=== PATIENT | female | born 1940 | race Caucasian/White ===

== ENCOUNTER 2023-02-25 18:18 | Inpatient (IN) | payer MEDICARE ==
[2023-02-25] MEDS ORDERED: NALOXONE 0.4 MG/ML 1 ML VIAL IV PRN (18:37)
--- NOTE | 2023-02-25 18:53 | ED ---
General Adult HPI - General Chief complaint: Chest Pain Stated complaint: Chest Pain Time Seen by Provider: 02/25/23 18:21 Source: patient, EMS, RN notes reviewed, old records reviewed Mode of arrival: EMS Limitations: no limitations - History of Present Illness Initial comments: 82-year-old female who presents as a transfer from outside hospital with g eneralized weakness, UTI, elevated troponin. Patient has history of coronary artery disease status post bypass. She was transferred to this institution after it was noted that she had UTI, leukocytosis and an elevated troponin. She has not experienced any chest pain or dyspnea. She had gone to outside emergency department with weakness and she was noted to have a UTI as well as a leukocytosis of 18. Her troponin was elevated and therefore she was transferred to this institution for stroke or headache enzymes and cardiology consultation. At the time my evaluation she denies any chest pain or any history of chest pain. No dyspnea. Review of Systems ROS Statement: Those systems with pertinent positive or pertinent negative responses have been documented in the HPI. ROS Other: All systems not noted in ROS Statement are negative. Past Medical History Past Medical History: Coronary Artery Disease (CAD), Diabetes Mellitus, Hyperlipidemia, Hypertension, Myocardial Infarction ([place]), Renal Disease Additional Past Medical History / Comment(s): CKD Stage 3, bilateral pseudophakia, anemia, Past Surgical History: Coronary Bypass/CABG Additional Past Surgical History / Comment(s): eye sugery Past Psychological History: Anxiety, Depression Smoking Status: Former smoker Past Alcohol Use History: None Reported Past Drug Use History: None Reported General Exam Limitations: no limitations General appearance: alert, in no apparent distress Head exam: Present: atraumatic, normocephalic Eye exam: Present: normal appearance Neck exam: Present: normal inspection. Absent: tenderness, meningismus Respiratory exam: Present: normal lung sounds bilaterally. Absent: respiratory distress, wheezes Cardiovascular Exam: Present: regular rate, normal rhythm Extremities exam: Present: normal inspection, normal capillary refill. Absent: pedal edema, calf tenderness Neurological exam: Present: alert, oriented X3, CN II-XII intact. Absent: motor sensory deficit Psychiatric exam: Present: normal affect, normal mood Skin exam: Present: warm, dry, intact. 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 sent in by a medical professional or institution (BASIL Wade, RACING BOARD MARKER, urgent care, hospital, or [facility]...) When possible be specific @ Sent from outside hospital for cardiology evaluation Did you speak to anyone other than the patient for history (EMS, parent, family, police, friend...)? What history was obtained from this source @ -No Did you review nursing and triage notes (agree or disagree)? Why? @ -I reviewed and agree with nursing and triage notes Were old charts reviewed (outside hosp., previous admission, EMS record, old EKG, old radiological studies, urgent care reports/EKG's, [facility] records)? Report findings @ -No old charts were reviewed Differential Diagnosis (chest pain, altered mental status, abdominal pain women, abdominal pain men, vaginal bleeding, weakness, fever, dyspnea, syncope, headache, dizziness, GI bleed, back pain, seizure, CVA, palpatations, mental health, musculoskeletal)? @ -Differential Weakness: Hypoglycemia, shock, sepsis, hyponatremia, anemia, infection, [place], ETOH, adverse medicine reaction, overdose, stroke, this is not meant to be an all-inclusive list. EKG interpreted by me (3pts min.). @ -Sinus rhythm rate of 72, NM interval 202, QRS 80, QTC [address] segment elevation or depression X-rays interpreted by me (1pt min.). @ -None done CT interpreted by me (1pt min.). @ -None done U/S interpreted by me (1pt. min.). @ -None done What testing was considered but not performed or refused? (CT, X-rays, U/S, labs)? Why? @ -None What meds were considered but not given or refused? Why? @ -None Did you discuss the management of the patient with other professionals (professionals i.e. BASIL Wade, RACING BOARD MARKER, lab, RT, psych nurse, social contact worker, professional fighter, teacher, minesweeping officer, shoe caser)? Give summary @ -[Dr. Kelley Was smoking cessation discussed for >3mins.? @ -No Was critical care preformed (if so, how long)? @ -No Were there social determinants of health that impacted care today? How? (Homelessness, low income, unemployed, alcoholism, drug addiction, transportation, low edu. Level, literacy, decrease access to med. care, senior care, rehab)? @ -No Was there de-escalation of care discussed even if they declined (Discuss DNR or withdrawal of care, Hospice)? DNR status @ -No What co-morbidities impacted this encounter? (DM, HTN, Smoking, COPD, CAD, Cancer, CVA, ARF, Chemo, Hep., AIDS, mental health diagnosis, sleep apnea, morbid obesity)? @ -[Coronary artery disease Was patient admitted / discharged? Hospital course, mention meds given and route, prescriptions, significant lab abnormalities, going to OR and other pertinent info. @ 82-year-old female transferred from outside hospital with UTI, weakness, elevated troponin. Troponin was 0.43. No active chest pain, no recent chest, EKG is sinus rhythm without definitive signs of ischemia. Patient will be continued on ceftriaxone, first dose was given at outside hospital. Repeat laboratory testing: CBC and CMP will be obtained. Patient admitted to internal medicine with cardiology on consult. Undiagnosed new problem with uncertain prognosis? @ -No Drug Therapy requiring intensive monitoring for toxicity (Heparin, Nitro, Insulin, Cardizem)? @ -No Were any procedures done? @ -No Diagnosis/symptom? @ -UTI, weakness, elevated troponin Acute, or Chronic, or Acute on Chronic? @ Acute Uncomplicated (without systemic symptoms) or Complicated (systemic symptoms)? @ -default Side effects of treatment? @ -No Exacerbation, Progression, or Severe Exacerbation? @ -No Poses a threat to life or bodily function? How? (Chest pain, [place], [place], pneumonia, PE, COPD, DKA, ARF, appy, cholecystitis, CVA, Diverticulitis, Homicidal, Suicidal, threat to staff... and all critical care pts) @ -Yes, ACS, sepsis Disposition Clinical Impression: Elevated troponin, UTI (urinary tract infection), Weakness Disposition: ADMITTED IP TO THIS [facility] Condition: Stable Is patient prescribed a controlled substance at d/c from ED?: No Referrals: Nonstaff,Physician [Primary Care Provider] - 1-2 days Time of Disposition: 18:56
[2023-02-25 18:55] LABS: Basophils % (A) 0 %; Eosinophils # (A) 0.1 k/uL (0-0.7); Eosinophils % (A) 0 %; HCT 32.3 % (34.0-46.0); HGB 10.6 gm/dL (11.4-16.0); Lymphocytes # (A) 1.3 k/uL (1.0-4.8); Lymphocytes % (A) 8 %; MCH 29.4 pg (25.0-35.0); MCHC 32.7 g/dL (31.0-37.0); MCV 89.7 fL (80.0-100.0); Mean Platelet Volume 7.7; Monocytes # (A) 0.6 k/uL (0-1.0); Monocytes % (A) 4 %; Neutrophils # (A) 14.3 k/uL (1.3-7.7); Neutrophils % (A) 86 %; Platelet Count 372 k/uL (150-450); RBC 3.61 m/uL (3.80-5.40); RDW 14.5 % (11.5-15.5); WBC 16.7 k/uL (3.8-10.6)
[2023-02-25 19:13] LABS: INR 1.1 (<1.2); Partial Thromboplastin Time 30.2 sec (22.0-30.0); Prothrombin Time 12.1 sec (10.0-12.5)
[2023-02-25 19:15] LABS: ALT 13 U/L (4-34); AST 22 U/L (14-36); African American GFR (CKD) 45 (>60 ml/min/1.73 sqM); Albumin 3.1 g/dL (3.5-5.0); Alkaline Phosphatase 99 U/L (38-126); Anion Gap 14 mmol/L; Blood Urea Nitrogen 32 mg/dL (7-17); Calcium 8.6 mg/dL (8.4-10.2); Carbon Dioxide 13 mmol/L (22-30); Chloride 113 mmol/L (98-107); Glucose 88 mg/dL (74-99); Non-African American GFR(CKD) 39 (>60 ml/min/1.73 sqM); Potassium 4.2 mmol/L (3.5-5.1); Sodium 140 mmol/L (137-145); Total Bilirubin 0.5 mg/dL (0.2-1.3); Total Protein 6.3 g/dL (6.3-8.2)
[2023-02-25] MEDS: SODIUM CHLORIDE 0.9% 1,000 ML IV SCH (19:31)
[2023-02-25] MEDS: ACETAMINOPHEN TAB 325 MG TAB PO PRN (22:00)
[2023-02-25 22:34] LABS: Appearance,Urine Cloudy (Clear); Bacteria,Urine Few /hpf; Bilirubin,Urine Negative (Negative); Blood,Urine Negative (Negative); Color,Urine Yellow; Glucose,Urine (UA) Negative (Negative); Hyaline Casts,Urine 18 /lpf (0-2); Ketones,Urine Negative (Negative); Leukocyte Esterase,Urine Large (Negative); Mucus,Urine Rare /hpf; Nitrite,Urine Positive (Negative); PH, Urine 5.5 (5.0-8.0); Protein,Urine 1+ (Negative); RBC,Urine 4 /hpf (0-5); Squamous Epithelial Cell,Urine 9 /hpf (0-4); Urobilinogen,Urine <2.0 mg/dL (<2.0); WBC,Urine 109 /hpf (0-5)
[2023-02-26] MEDS: SODIUM CHLORIDE 0.9% 1,000 ML IV SCH (07:54)
[2023-02-26] MEDS: CLOPIDOGREL 75 MG TAB PO SCH (08:34)
[2023-02-26] MEDS: ATORVASTATIN 80 MG TAB PO SCH (08:34)
[2023-02-26] MEDS: ASPIRIN 81 MG PO SCH (08:34)
[2023-02-26] MEDS: FENOFIBRATE 160 MG TAB PO SCH (08:34)
[2023-02-26] MEDS: ISOSORBIDE MONONITRATE ER 30 MG TAB.ER.24H PO SCH (08:35)
[2023-02-26] MEDS: METOPROLOL SUCCINATE (ER) 100 MG TAB.ER.24H PO SCH (08:35)
[2023-02-26] MEDS: FERROUS SULFATE 325 MG TAB PO SCH (08:35)
[2023-02-26] MEDS: LOSARTAN 50 MG TAB PO SCH (08:35)
[2023-02-26] MEDS ORDERED: DEXTROSE 50% SYRINGE 50 ML IVP PRN ×2 (09:17)
[2023-02-26] MEDS: FLUoxetine HCL 10 MG CAP PO SCH (12:37)
[2023-02-26 12:44] LABS: Glucose,Whole Blood 89 mg/dL (70-110)
[2023-02-26] MEDS: INSULIN ASPART (NovoLOG) 100 UNIT/ML VIAL SQ SCH ×3 (12:44→22:21)
--- NOTE | 2023-02-26 12:59 | P.CRDCN ---
History of Present Illness Consult date: 02/26/23 Reason for Consult (text): Elevated troponin History of present illness: History of present illness: This is an 82-year-old female with past medical history of coronary artery disease status post CABG three-vessel 5 years ago and [facility], details are not available, diabetes, hypertension, hyperlipidemia, chronic kidney disease stage III, remote history of tobacco use and dependence. We have been asked to evaluate the patient for elevated troponins. Patient states that she was not feeling good Sunday night into Sunday morning awoke with chills on 2 separate occasions with shakes and rigors. She then developed hot and sweats. Her daughter told her come into the hospital. She now is feeling only tired. She denies having any chest pain or shortness of breath. Patient initially presented to another facility and diagnosed with a urinary tract infection but was found to have an elevated troponin was transferred to [facility] for further evaluation. Troponin was 0.43, creatinine 1.5, EKG sinus rhythm with PVCs. Patient denies having any chest pain, shortness of breath. Patient has been started on ceftriaxone and IV fluids. Patient states she had a stress test done in October of this year at [facility] EKG sinus rhythm with no acute ST changes, occasional PVC WBC 16.7, WBC 10.6, platelet count 372. INR 1.1. Sodium 140, potassium 4.2, BUN 32 creatinine 1.29. Troponin 0.333, 0.205, 0.166. Urinalysis cloudy, positive nitrate, leukoesterase large Home cardiac medications: Aspirin 81 mg daily, atorvastatin 80 mg daily, Plavix 75 mg daily, ferrous sulfate 325 mg daily, Imdur 30 mg daily, losartan 100 mg daily, Toprol-XL 100 mg daily, Lopid 600 mg twice daily. Review Of Systems: At the time of my evaluation: Constitutional: No fever, + chills. + weakness, fatigue or lethargy. EENT: No headache. No dizziness. Lungs: No shortness of breath, cough, no sputum production. No wheezing. Cardiovascular: No chest pain, no lower extremity edema. No palpitations. No paroxysmal nocturnal dyspnea. No orthopnea. No lightheadedness or dizziness. No syncopal episodes. Abdominal: No abdominal pain. No nausea, vomiting. No diarrhea. No constipation. No bloody or tarry stools. Genitourinary: No dysuria.. No urinary retention. Musculoskeletal: No myalgias. No muscle weakness, no frequent falls. No back pain. No neck pain. Integumentary: No wounds. No rash. No unusual bruising. Neurologic: No aphasia. No facial droop. No change in mentation. No head injury. No headache. Physical examination: Gen: This is an 82 year old female on ER stretcher, appears to be in no acute distress. VS: reviewed HEENT: Head is atraumatic, normocephalic. Pupils equal, round. Sclerae is anicteric. NECK: Supple. No JVD. LUNGS: Clear to auscultation. No wheezes or rhonchi. No intercostal retractio ns. HEART: Regular rate and rhythm. ABDOMEN: Soft No tenderness. EXTREMITIES: No pedal edema. No calf tenderness. NEUROLOGICAL: Patient is awake, alert and oriented x3. Assessment: Urinary tract infection Elevated troponin type II [facility] secondary to supply demand issue History of coronary artery disease with previous CABG Diabetes mellitus type 2 Hypertension Hyperlipidemia Chronic kidney disease stage III Remote history of tobacco use and dependence Plan: Resume patient's home cardiac medications Obtain 2-D echocardiogram and Doppler study to assess cardiac structure and function Obtain previous surgery port on CABG done 5 years ago Obtain stress test report from October of the share done at [facility]. If stress test was negative in October and echocardiogram is normal, patient is cleared for discharge from cardiology and a follow-up with her special crimes investigator and Reagan Further recommendations to follow based upon clinical course Thank you kindly for this consultation. Nurse practitioner note has been reviewed, I agree with documented findings and plan of care. Patient was seen and examined. Past Medical History Past Medical History: Coronary Artery Disease (CAD), Diabetes Mellitus, Hyperlipidemia, Hypertension, Myocardial Infarction ([place]), Renal Disease Additional Past Medical History / Comment(s): CKD Stage 3, bilateral pseudophakia, anemia, Past Surgical History: Coronary Bypass/CABG Additional Past Surgical History / Comment(s): eye sugery Past Psychological History: Anxiety, Depression Smoking Status: Former smoker Past Alcohol Use History: None Reported Past Drug Use History: None Reported Medications and Allergies Home Medications Medication Instructions Recorded Confirmed Type Ascorbic Acid [Vitamin C] 1,000 mg PO DAILY 02/25/23 02/25/23 History Aspirin EC [Ecotrin Low Dose] 81 mg PO DAILY 02/25/23 02/25/23 History Atorvastatin [Lipitor] 80 mg PO DAILY 02/25/23 02/25/23 History Clopidogrel [Plavix] 75 mg PO DAILY 02/25/23 02/25/23 History Cyanocobalamin (Vitamin B-12) 1,000 mcg PO DAILY 02/25/23 02/25/23 History [Vitamin B-12] FLUoxetine HCL [PROzac] 10 mg PO DAILY 02/25/23 02/25/23 History Ferrous Sulfate [Feosol] 325 mg PO DAILY 02/25/23 02/25/23 History Isosorbide Mononitrate ER [Imdur] 30 mg PO DAILY 02/25/23 02/25/23 History Losartan Potassium 100 mg PO DAILY 02/25/23 02/25/23 History Metoprolol Succinate (ER) [Toprol 100 mg PO DAILY 02/25/23 02/25/23 History Xl] Multivit-Min/FA/Lycopen/Lutein 1 tab PO DAILY 02/25/23 02/25/23 History [Centrum Silver Tablet] Naproxen Sodium [Aleve] 220 mg PO BID 02/25/23 02/25/23 History gemfibroziL [Lopid] 600 mg PO BID 02/25/23 02/25/23 History metFORMIN HCL [Glucophage] 500 mg PO DAILY 02/25/23 02/25/23 History Allergies Allergy/AdvReac Type Severity Reaction Status Date / Time No Known Allergies Allergy Verified 02/25/23 20:44 Physical Exam Vitals: Vital Signs Temp Pulse Pulse Resp BP BP Pulse Ox 02/26/23 04:00 97.5 F L 56 L 14 144/63 95 02/26/23 00:00 97.8 F 58 L 14 128/57 96 02/25/23 19:29 72 16 122/63 98 02/25/23 18:35 75 02/25/23 18:20 98.1 F 77 18 128/67 95 Intake and Output 02/25/23 02/26/23 02/26/23 22:59 06:59 14:59 Intake Total 600 Output Total 600 Balance -600 600 Intake: Intake, IV Titration 600 Amount Sodium Chloride 0.9% 1, 600 000 ml @ 75 mls/hr IV . [id number] [facility] Rx#:[id number] Output: Urine 600 Other: Voiding Method Toilet Toilet Weight 68.039 kg Results 02/25/23 18:42 02/25/23 18:42 Cardiac Enzymes 02/25/23 02/25/23 02/25/23 Range/Units 18:42 18:42 21:53 AST 22 (14-36) U/L Troponin I 0.333 H* 0.205 H* (0.000-0.034) ng/mL 02/26/23 Range/Units 00:58 AST (14-36) U/L Troponin I 0.166 H* (0.000-0.034) ng/mL Coagulation 02/25/23 Range/Units 18:42 PT 12.1 (10.0-12.5) sec APTT 30.2 H (22.0-30.0) sec CBC 02/25/23 Range/Units 18:42 WBC 16.7 H (3.8-10.6) k/uL RBC 3.61 L (3.80-5.40) m/uL Hgb 10.6 L (11.4-16.0) gm/dL Hct 32.3 L (34.0-46.0) % Plt Count 372 (150-450) k/uL Comprehensive Metabolic Panel 02/25/23 Range/Units 18:42 Sodium 140 (137-145) mmol/L Potassium 4.2 (3.5-5.1) mmol/L Chloride 113 H (98-107) mmol/L Carbon Dioxide 13 L (22-30) mmol/L BUN 32 H (7-17) mg/dL Creatinine 1.29 H (0.52-1.04) mg/dL Glucose 88 (74-99) mg/dL Calcium 8.6 (8.4-10.2) mg/dL AST 22 (14-36) U/L ALT 13 (4-34) U/L Alkaline Phosphatase 99 (38-126) U/L Total Protein 6.3 (6.3-8.2) g/dL Albumin 3.1 L (3.5-5.0) g/dL Current Medications Generic Name Dose Route Start Last Admin Trade Name Freq PRN Reason Stop Dose Admin Acetaminophen 650 mg 02/25/23 18:37 02/25/23 22:00 Acetaminophen Tab 325 Mg Tab PO 650 mg Q6HR PRN Administration Mild Pain or Fever > 100.5 Sodium Chloride 1,000 mls @ 75 mls/hr 02/25/23 18:45 02/25/23 19:31 Saline 0.9% IV 75 mls/hr .[id number] BERTHA Administration Ceftriaxone Sodium 1 gm/ 50 mls @ 100 mls/hr 02/26/23 09:00 Sodium Chloride IVPB Q24HR [facility] Protocol Naloxone HCl 0.2 mg 02/25/23 18:37 Naloxone 0.4 Mg/Ml 1 Ml Vial IV Q2M PRN Opioid Reversal Intake and Output 02/25/23 02/26/23 02/26/23 22:59 06:59 14:59 Intake Total 600 Output Total 600 Balance -600 600 Intake: Intake, IV Titration 600 Amount Sodium Chloride 0.9% 1, 600 000 ml @ 75 mls/hr IV . [id number] [facility] Rx#:[id number] Output: Urine 600 Other: Voiding Method Toilet Toilet Weight 68.039 kg 02/25/23 18:42 02/25/23 18:42
--- NOTE | 2023-02-26 13:22 | CA ---
Transthoracic Echo Report Name: Breann Child Age: 82 Gender: F : 1940 Exam Date: 02/26/2023 10:49 Exam Location: [facility] Ht (in): 58 Wt (lb): 150 Ordering Physician: Ericka Nix Attending/Referring Phys: [id number], Dinah Rope Twisting Machine Operator Braden Wright Procedure CPT: Indications: LVF Cardiac Hx: Technical Quality: Fair Contrast 1: Total Dose (mL): Contrast 2: Total Dose (mL): MEASUREMENTS (Male / Female) Normal Values 2D ECHO LV Diastolic Diameter PLAX 4.9 cm 4.2 - 5.9 / 3.9 - 5.3 cm LV Systolic Diameter PLAX 3.0 cm IVS Diastolic Thickness 1.0 cm 0.6 - 1.0 / 0.6 - 0.9 cm LVPW Diastolic Thickness 1.1 cm 0.6 - 1.0 / 0.6 - 0.9 cm LV Relative Wall Thickness 0.4 RV Internal Dim ED PLAX 3.6 cm LVOT Diameter 1.9 cm Aortic Root Diameter 3.2 cm LA Systolic Diameter LX 2.4 cm 3.0 - 4.0 / 2.7 - 3.8 cm LV Diastolic Volume MOD BP 39.0 cm??? 67 - 155 / 56 - 104 cm??? LV Systolic Volume MOD BP 19.5 cm??? - 58 / 19 - 49 cm??? LV Ejection Fraction MOD BP 50.1 % >= 55 % LV Cardiac Index MOD BP 644.7 cm???/min???m??? LV Diastolic Volume MOD 4C 54.1 cm??? LV Systolic Volume MOD 4C 21.8 cm??? LV Ejection Fraction MOD 4C 59.8 % LV Cardiac Index MOD 4C 1066.4 cm???/min???m??? LV Diastolic Length 4C 7.1 cm LV Systolic Length 4C 5.7 cm LV Diastolic Volume MOD 2C 26.2 cm??? LV Systolic Volume MOD 2C 16.2 cm??? LV Ejection Fraction MOD 2C 38.0 % LV Cardiac Index MOD 2C 328.1 cm???/min???m??? LV Diastolic Length 2C 6.5 cm LV Systolic Length 2C 6.3 cm LA Volume 45.4 cm??? 18 - 58 / 22 - 52 cm??? LA Volume Index 26.7 cm???/m??? 16 - 28 cm???/m??? DOPPLER AV Peak Velocity 211.2 cm/s AV Peak Gradient 17.8 mmHg AI Peak Velocity 353.6 cm/s AI Peak Gradient 50.0 mmHg AI Pressure Half Time 620.1 ms LVOT Peak Velocity 99.1 cm/s LVOT Peak Gradient 3.9 mmHg LVOT Velocity Time Integral 24.6 cm LVOT Stroke Volume 66.2 cm??? LVOT Stroke Volume Index 41.1 ml/m??? LVOT Cardiac Index 2183.3 cm???/min???m??? AV Area Cont Eq pk 1.3 cm??? MV Peak Velocity 99.3 cm/s MV Peak Gradient 3.9 mmHg MV Mean Velocity 52.2 cm/s MV Mean Gradient 1.3 mmHg MV Velocity Time Integral 43.9 cm MR Peak Velocity 236.2 cm/s MR Peak Gradient 22.3 mmHg Mitral E Point Velocity 84.9 cm/s Mitral A Point Velocity 92.9 cm/s Mitral E to A Ratio 0.9 MV Deceleration Time 267.7 ms MV E' Velocity 6.3 cm/s Mitral E to MV E' Ratio 13.5 TR Peak Velocity 202.7 cm/s TR Peak Gradient 16.4 mmHg Right Ventricular Systolic Press 21.4 mmHg PV Peak Velocity 118.9 cm/s PV Peak Gradient 5.7 mmHg FINDINGS Left Ventricle Normal LV size. Moderate concentric LVH. Left ventricular ejection fraction is estimated at 50-55 %. Right Ventricle Normal right ventricular size. RVSP= 21mmHg. Right Atrium Normal right atrial size. Left Atrium Normal left atrial size. LA volume Index = 28.2ml/m2 Mitral Valve Structurally normal mitral valve. Trace MR. Aortic Valve Aortic valve not well visualized. There is mild AV calcification. Moderate AI. AV area by VTI= 1.3cm2 Tricuspid Valve Tricuspid valve not well visualized. Trace TR. Pulmonic Valve Pulmonic valve not well visualized. Mild PI. Pericardium Small pericardial effusion with epicardial fat Aorta Normal size aortic root. CONCLUSIONS Normal LV size. Normal systolic function. LVEF 55% No obvious regional wall motion abnormality Moderate concentric LVH Moderate aortic insufficiency Small pericardial effusion with epicardial fat Previewed by: Dr Dakotah Donald (Electronically Signed) Final Date: 26 February 2023 13:21
--- NOTE | 2023-02-26 13:26 | P.HPIM ---
History of Present Illness H&P Date: 02/26/23 Chief Complaint: Generalized weakness, elevated troponin * 82-year-old lady with past medical history significant for diabetes mellitus, coronary artery disease, history of CABG was sent in from an outside hospital for weakness fatigue elevated troponin and concern for urinary tract infection and sepsis * Workup initiated in our emergency department include hepatology which were WBC of 16.7 and Lovenox 10.6 hematocrit of 32 platelet count of 372 * Patient had serum chemistry done which sodium of 140 potassium 4.2 carbon dioxide of 13 BU and also to 1.09 * Serial troponins obtained 0.205, 0.166, urinalysis is obtained in ED was consistent with urinary tract infection patient had already received Rocephin * EKG obtained in ER, showed sinus rhythm no significant ST segment changes * Patient was assessed in emergency department, she complained of chills, patient states her daughter had told her to come to the hospital in general patient complained of feeling tired REVIEW OF SYSTEMS: Fatigue, chills CONSTITUTIONAL: No fever, no malaise, no fatigue. HEENT: No recent visual problems or hearing problems. Denied any sore throat. CARDIOVASCULAR: No chest pain, orthopnea, PND, no palpitations, no syncope. PULMONARY: No shortness of breath, no cough, no hemoptysis. GASTROINTESTINAL: No diarrhea, no nausea, no vomiting, no abdominal pain. NEUROLOGICAL: No headaches, no weakness, no numbness. HEMATOLOGICAL: Denies any bleeding or petechiae. GENITOURINARY: Denies any burning micturition, frequency, or urgency. MUSCULOSKELETAL/RHEUMATOLOGICAL: Denies any joint pain, swelling, or any muscle pain. ENDOCRINE: Denies any polyuria or polydipsia. PHYSICAL EXAMINATION: GENERAL: The patient is alert and oriented x3, not in any acute distress. Well developed, well nourished. HEENT: Pupils are round and equally reacting to light. EOMI. No scleral icterus. No conjunctival pallor. Normocephalic, atraumatic. No pharyngeal erythema. No thyromegaly. CARDIOVASCULAR: S1 and S2 present. No murmurs, rubs, or gallops. PULMONARY: Chest is clear to auscultation, no wheezing or crackles. ABDOMEN: Soft, nontender, nondistended, normoactive bowel sounds. No palpable organomegaly. MUSCULOSKELETAL: No joint swelling or deformity. EXTREMITIES: No cyanosis, clubbing, or pedal edema. NEUROLOGICAL: Gross neurological examination did not reveal any focal deficits. SKIN: No rashes. Past Medical History Past Medical History: Coronary Artery Disease (CAD), Diabetes Mellitus, Hyperlipidemia, Hypertension, Myocardial Infarction (MD), Renal Disease Additional Past Medical History / Comment(s): CKD Stage 3, bilateral pseudophakia, anemia, Past Surgical History: Coronary Bypass/CABG Additional Past Surgical History / Comment(s): eye sugery Past Psychological History: Anxiety, Depression Smoking Status: Former smoker Past Alcohol Use History: None Reported Past Drug Use History: None Reported Medications and Allergies Home Medications Medication Instructions Recorded Confirmed Type Ascorbic Acid [Vitamin C] 1,000 mg PO DAILY 02/25/23 02/25/23 History Aspirin EC [Ecotrin Low Dose] 81 mg PO DAILY 02/25/23 02/25/23 History Atorvastatin [Lipitor] 80 mg PO DAILY 02/25/23 02/25/23 History Clopidogrel [Plavix] 75 mg PO DAILY 02/25/23 02/25/23 History Cyanocobalamin (Vitamin B-12) 1,000 mcg PO DAILY 02/25/23 02/25/23 History [Vitamin B-12] FLUoxetine HCL [PROzac] 10 mg PO DAILY 02/25/23 02/25/23 History Ferrous Sulfate [Feosol] 325 mg PO DAILY 02/25/23 02/25/23 History Isosorbide Mononitrate ER [Imdur] 30 mg PO DAILY 02/25/23 02/25/23 History Losartan Potassium 100 mg PO DAILY 02/25/23 02/25/23 History Metoprolol Succinate (ER) [Toprol 100 mg PO DAILY 02/25/23 02/25/23 History Xl] Multivit-Min/FA/Lycopen/Lutein 1 tab PO DAILY 02/25/23 02/25/23 History [Centrum Silver Tablet] Naproxen Sodium [Aleve] 220 mg PO BID 02/25/23 02/25/23 History gemfibroziL [Lopid] 600 mg PO BID 02/25/23 02/25/23 History metFORMIN HCL [Glucophage] 500 mg PO DAILY 02/25/23 02/25/23 History Allergies Allergy/AdvReac Type Severity Reaction Status Date / Time No Known Allergies Allergy Verified 02/25/23 20:44 Physical Exam Vitals: Vital Signs Temp Pulse Pulse Resp BP BP Pulse Ox 02/26/23 08:40 67 22 150/69 97 02/26/23 04:00 97.5 F L 56 L 14 144/63 95 02/26/23 00:00 97.8 F 58 L 14 128/57 96 02/25/23 19:29 72 16 122/63 98 02/25/23 18:35 75 02/25/23 18:20 98.1 F 77 18 128/67 95 Intake and Output 02/25/23 02/26/23 02/26/23 22:59 06:59 14:59 Intake Total 600 Output Total 600 Balance -600 600 Intake: Intake, IV Titration 600 Amount Sodium Chloride 0.9% 1, 600 000 ml @ 75 mls/hr IV . [id number] [facility] Rx#:[id number] Output: Urine 600 Other: Voiding Method Toilet Toilet Weight 68.039 kg Results CBC & Chem 7: 02/25/23 18:42 02/25/23 18:42 Labs: Abnormal Lab Results - Last 24 Hours (Table) 02/25/23 02/25/23 02/25/23 Range/Units 18:38 18:42 18:42 WBC 16.7 H (3.8-10.6) k/uL RBC 3.61 L (3.80-5.40) m/uL Hgb 10.6 L (11.4-16.0) gm/dL Hct 32.3 L (34.0-46.0) % Neutrophils # 14.3 H (1.3-7.7) k/uL APTT 30.2 H (22.0-30.0) sec Chloride (98-107) mmol/L Carbon Dioxide (22-30) mmol/L BUN (7-17) mg/dL Creatinine (0.52-1.04) mg/dL Troponin I (0.000-0.034) ng/mL Albumin (3.5-5.0) g/dL Urine Appearance Cloudy H (Clear) Urine Protein 1+ H (Negative) Urine Nitrite Positive H (Negative) Ur Leukocyte Esterase Large H (Negative) Urine WBC 109 H (0-5) /hpf Urine WBC Clumps Few H (None) /hpf Ur Squamous Epith Cells 9 H (0-4) /hpf Urine Bacteria Few H (None) /hpf Hyaline Casts 18 H (0-2) /lpf Urine Mucus Rare H (None) /hpf 02/25/23 02/25/23 02/25/23 Range/Units 18:42 18:42 21:53 WBC (3.8-10.6) k/uL RBC (3.80-5.40) m/uL Hgb (11.4-16.0) gm/dL Hct (34.0-46.0) % Neutrophils # (1.3-7.7) k/uL APTT (22.0-30.0) sec Chloride 113 H (98-107) mmol/L Carbon Dioxide 13 L (22-30) mmol/L BUN 32 H (7-17) mg/dL Creatinine 1.29 H (0.52-1.04) mg/dL Troponin I 0.333 H* 0.205 H* (0.000-0.034) ng/mL Albumin 3.1 L (3.5-5.0) g/dL Urine Appearance (Clear) Urine Protein (Negative) Urine Nitrite (Negative) Ur Leukocyte Esterase (Negative) Urine WBC (0-5) /hpf Urine WBC Clumps (None) /hpf Ur Squamous Epith Cells (0-4) /hpf Urine Bacteria (None) /hpf Hyaline Casts (0-2) /lpf Urine Mucus (None) /hpf 02/26/23 Range/Units 00:58 WBC (3.8-10.6) k/uL RBC (3.80-5.40) m/uL Hgb (11.4-16.0) gm/dL Hct (34.0-46.0) % Neutrophils # (1.3-7.7) k/uL APTT (22.0-30.0) sec Chloride (98-107) mmol/L Carbon Dioxide (22-30) mmol/L BUN (7-17) mg/dL Creatinine (0.52-1.04) mg/dL Troponin I 0.166 H* (0.000-0.034) ng/mL Albumin (3.5-5.0) g/dL Urine Appearance (Clear) Urine Protein (Negative) Urine Nitrite (Negative) Ur Leukocyte Esterase (Negative) Urine WBC (0-5) /hpf Urine WBC Clumps (None) /hpf Ur Squamous Epith Cells (0-4) /hpf Urine Bacteria (None) /hpf Hyaline Casts (0-2) /lpf Urine Mucus (None) /hpf Assessment and Plan Assessment: Assessment and plan * Urinary tract infection * Sepsis secondary to UTI * Coronary artery disease with history of CABG with elevated troponin * Diabetes mellitus type 2 * Hypertension * In regards to urinary tract infection him a urine cultures ordered, continue patient on IV Rocephin, blood cultures ordered continue with fluid resuscitation * In regards to sepsis, continue patient on IV antibiotic follow up on urine culture and blood culture * In regards to coronary artery disease, cardiology consulted, echocardiogram ordered, continue patient on aspirin, Lipitor, Plavix, cardiology following will need medical records from outside hospital * In regards to diabetes mellitus Accu-Cheks before meals at bedtime continue patient on correctional insulin monitor for hypoglycemia * CODE STATUS is full code
[2023-02-26] MEDS: ACETAMINOPHEN TAB 325 MG TAB PO PRN ×2 (15:55→19:49)
[2023-02-26 16:40] LABS: Glucose,Whole Blood 101 mg/dL (70-110)
[2023-02-26 20:19] LABS: Glucose,Whole Blood 108 mg/dL (70-110)
[2023-02-26] MEDS ORDERED: HYDROcodone/APAP 5-325MG 1 EACH TAB PO PRN (23:51)
[2023-02-26] MEDS: MELATONIN 5 MG TABLET PO SCH (23:56)
[2023-02-27] MEDS: SODIUM CHLORIDE 0.9% 1,000 ML IV SCH ×3 (00:03→21:24)
[2023-02-27 01:17] LABS: Glucose,Whole Blood 105 mg/dL (70-110)
[2023-02-27] MEDS ORDERED: methylPREDNISolone SOD SUCCI 125 MG/2 ML VIAL IV STA (01:59)
[2023-02-27] MEDS ORDERED: FAMOTIDINE 20 MG/2 ML VIAL IV ONE (01:59)
[2023-02-27] MEDS ORDERED: diphenhydrAMINE 50 MG/ML 1 ML VIAL IVP ONE (01:59)
[2023-02-27] MEDS ORDERED: SODIUM CHLORIDE 0.9% 500 ML 500 ML IV ONE (02:00)
[2023-02-27] MEDS: hydrALAZINE HCL 20 MG/ML 1 ML VIAL IVP PRN (02:11)
[2023-02-27] MEDS ORDERED: ACETAMINOPHEN IV (For NPO) 1,000 MG in EMPTY BAG 1 BAG IVPB PRN (02:16)
[2023-02-27] MEDS: ONDANSETRON 4 MG/2 ML VIAL IVP PRN (02:28)
[2023-02-27 02:29] LABS: ALT 11 U/L (4-34); AST 22 U/L (14-36); African American GFR (CKD) >90 (>60 ml/min/1.73 sqM); Albumin 1.8 g/dL (3.5-5.0); Alkaline Phosphatase 59 U/L (38-126); Anion Gap 7 mmol/L; Blood Urea Nitrogen 22 mg/dL (7-17); Carbon Dioxide 10 mmol/L (22-30); Chloride 124 mmol/L (98-107); Glucose 70 mg/dL (74-99); Non-African American GFR(CKD) 83 (>60 ml/min/1.73 sqM); Sodium 141 mmol/L (137-145); Total Bilirubin 0.2 mg/dL (0.2-1.3)
[2023-02-27 02:31] LABS: Calcium 5.3 mg/dL (8.4-10.2)
[2023-02-27 02:37] LABS: Glucose,Whole Blood 108 mg/dL (70-110)
[2023-02-27] MEDS ORDERED: Potassium Replacement Protocol 1 EACH MISC MISCELLANE PRN (03:28)
[2023-02-27 03:35] LABS: Basophils % (A) 0 %; Eosinophils # (A) 0.1 k/uL (0-0.7); Eosinophils % (A) 1 %; HCT 27.6 % (34.0-46.0); Hypochromasia Slight; Lymphocytes # (A) 0.4 k/uL (1.0-4.8); Lymphocytes % (A) 3 %; MCH 29.4 pg (25.0-35.0); MCHC 32.5 g/dL (31.0-37.0); Mean Platelet Volume 8.1; Monocytes # (A) 0.5 k/uL (0-1.0); Monocytes % (A) 4 %; Neutrophils # (A) 12.5 k/uL (1.3-7.7); Neutrophils % (A) 92 %; RBC 3.05 m/uL (3.80-5.40); RDW 14.6 % (11.5-15.5); WBC 13.6 k/uL (3.8-10.6)
[2023-02-27 04:05] LABS: ALT 13 U/L (4-34); AST 24 U/L (14-36); African American GFR (CKD) 62 (>60 ml/min/1.73 sqM); Albumin 2.6 g/dL (3.5-5.0); Alkaline Phosphatase 93 U/L (38-126); Anion Gap 10 mmol/L; Blood Urea Nitrogen 29 mg/dL (7-17); Carbon Dioxide 14 mmol/L (22-30); Chloride 114 mmol/L (98-107); Glucose 94 mg/dL (74-99); MCV 90.4 fL (80.0-100.0); Magnesium 1.6 mg/dL (1.6-2.3); Non-African American GFR(CKD) 54 (>60 ml/min/1.73 sqM); Potassium 3.8 mmol/L (3.5-5.1); Sodium 138 mmol/L (137-145); Total Bilirubin 0.4 mg/dL (0.2-1.3); Total Protein 5.4 g/dL (6.3-8.2)
[2023-02-27 04:06] LABS: Platelet Count 287 k/uL (150-450)
[2023-02-27] MEDS ORDERED: Magnesium Replacement Protocol 1 EACH MISC MISCELLANE PRN (04:21)
[2023-02-27 05:38] LABS: HCT 28.8 % (34.0-46.0); HGB 9.5 gm/dL (11.4-16.0); Hypochromasia Slight; MCH 29.6 pg (25.0-35.0); MCV 89.9 fL (80.0-100.0); Mean Platelet Volume 7.9; Platelet Count 321 k/uL (150-450); RBC 3.21 m/uL (3.80-5.40); RDW 14.5 % (11.5-15.5)
[2023-02-27 05:46] LABS: African American GFR (CKD) 60 (>60 ml/min/1.73 sqM); Anion Gap 11 mmol/L; Blood Urea Nitrogen 26 mg/dL (7-17); Calcium 8.1 mg/dL (8.4-10.2); Carbon Dioxide 14 mmol/L (22-30); Chloride 114 mmol/L (98-107); Glucose 97 mg/dL (74-99); Non-African American GFR(CKD) 52 (>60 ml/min/1.73 sqM); Potassium 3.9 mmol/L (3.5-5.1); Sodium 139 mmol/L (137-145)
[2023-02-27 06:11] LABS: Glucose,Whole Blood 115 mg/dL (70-110)
[2023-02-27] MEDS: INSULIN ASPART (NovoLOG) 100 UNIT/ML VIAL SQ SCH ×4 (06:37→20:31)
--- NOTE | 2023-02-27 07:21 | CT ---
EXAM: CT Angiography Chest Without and With Intravenous Contrast CLINICAL HISTORY: ITS.REASON CT Reason: HGB 3.4, ABD DISTENTION TECHNIQUE: Axial computed tomographic angiography images of the chest without and with intravenous contrast. CTDI is 8.8 mGy and DLP is 599 mGy-cm. This CT exam was performed using one or more of the following dose reduction techniques: automated exposure control, adjustment of the mA and/or kV according to patient size, and/or use of iterative reconstruction technique. MIP reconstructed images were created and reviewed. COMPARISON: No relevant prior studies available. FINDINGS: Artifacts: Respiratory motion artifact. Pulmonary arteries: No acute findings. No pulmonary embolism. Aorta: Calcified plaque thoracic aorta. No thoracic aortic aneurysm. Lungs: Mild dependent atelectasis. No consolidation. Pleural space: Unremarkable. No significant effusion. No pneumothorax. Heart: Postsurgical changes from CABG. Coronary artery calcification. Mediastinum: Mediastinal lipomatosis. Bones/joints: Findings of diffuse idiopathic skeletal hyperostosis in the thoracic spine. No acute fracture. No dislocation. Soft tissues: Unremarkable. Lymph nodes: Unremarkable. No enlarged lymph nodes. IMPRESSION: No thoracic aortic aneurysm or dissection. No acute disease. EXAM: CT Angiography Abdomen and Pelvis Without and With Intravenous Contrast CLINICAL HISTORY: ITS.REASON CT Reason: HGB 3.4, ABD DISTENTION TECHNIQUE: Axial computed tomographic angiography images of the abdomen and pelvis without and with intravenous contrast. CTDI is 21.6 mGy and DLP is 615.9 mGy-cm. This CT exam was performed using one or more of the following dose reduction techniques: automated exposure control, adjustment of the mA and/or kV according to patient size, and/or use of iterative reconstruction technique. MIP reconstructed images were created and reviewed. COMPARISON: No relevant prior studies available. FINDINGS: VASCULATURE: Aorta: Moderate calcified plaque abdominal aorta. No abdominal aortic aneurysm. No dissection. Celiac trunk and mesenteric arteries: No acute findings. No occlusion or significant stenosis. Renal arteries: There is some mild calcified plaque in the renal arteries. No significant stenosis. Iliac arteries: No acute findings. No occlusion or significant stenosis. Lung bases: Unremarkable. No mass. No consolidation. ABDOMEN: Liver: Unremarkable. No mass. Gallbladder and bile ducts: Unremarkable. No calcified stones. No ductal dilation. Pancreas: Unremarkable. No ductal dilation. No mass. Spleen: Unremarkable. No splenomegaly. Adrenals: Unremarkable. No mass. Kidneys and ureters: Mild nonspecific perinephric stranding. Cyst lower pole left kidney. No obstructing stones. Stomach and bowel: Colonic diverticulosis. No obstruction. No mucosal thickening. PELVIS: Appendix: No findings to suggest acute appendicitis. Bladder: Unremarkable. No stones. No mass. Reproductive: Unremarkable as visualized. ABDOMEN and PELVIS: Intraperitoneal space: Unremarkable. No significant fluid collection. No free air. Bones/joints: Degenerative changes in the sacroiliac joints. No acute fracture. No dislocation. Soft tissues: Upper abdominal hernia containing fat. Lymph nodes: Unremarkable. No enlarged lymph nodes. IMPRESSION: 1. No abdominal aortic aneurysm or dissection. No acute disease. 2. Colonic diverticulosis.
[2023-02-27] MEDS: ISOSORBIDE MONONITRATE ER 30 MG TAB.ER.24H PO SCH (08:28)
[2023-02-27] MEDS: LOSARTAN 50 MG TAB PO SCH (08:28)
[2023-02-27] MEDS: CLOPIDOGREL 75 MG TAB PO SCH (08:28)
[2023-02-27] MEDS: METOPROLOL SUCCINATE (ER) 100 MG TAB.ER.24H PO SCH (08:28)
[2023-02-27] MEDS: ENOXAPARIN 40 MG/0.4 ML SYRINGE SQ SCH (08:28)
[2023-02-27] MEDS: ASPIRIN 81 MG PO SCH (08:28)
[2023-02-27] MEDS: FERROUS SULFATE 325 MG TAB PO SCH (08:28)
[2023-02-27] MEDS: FLUoxetine HCL 10 MG CAP PO SCH (08:28)
[2023-02-27] MEDS: FENOFIBRATE 160 MG TAB PO SCH (08:28)
[2023-02-27] MEDS: ATORVASTATIN 80 MG TAB PO SCH (08:28)
[2023-02-27 11:36] LABS: Glucose,Whole Blood 154 mg/dL (70-110)
--- NOTE | 2023-02-27 11:39 | P.PN ---
Subjective Progress Note Date: 02/27/23 * 82-year-old lady with past medical history significant for diabetes mellitus, coronary artery disease, history of CABG was sent in from an outside hospital for weakness fatigue elevated troponin and concern for urinary tract infection and sepsis * Workup initiated in our emergency department include hepatology which were WBC of 16.7 and Lovenox 10.6 hematocrit of 32 platelet count of 372 * Patient had serum chemistry done which sodium of 140 potassium 4.2 carbon dioxide of 13 BU and also to 1.09 * Serial troponins obtained 0.205, 0.166, urinalysis is obtained in ED was consistent with urinary tract infection patient had already received Rocephin * EKG obtained in ER, showed sinus rhythm no significant ST segment changes * Patient was assessed in emergency department, she complained of chills, sybil t states her daughter had told her to come to the hospital in general patient complained of feeling tired * 02/27/23: Patient seen and evaluated bedside, overnight patient had episode of chills, rapid response was called blood work obtained showed hemoglobin of 3.4 which was elevated. Repeat blood work obtained stat showed hemoglobin of 9. Blood work obtained showed normal sodium and renal function HbA1c 6.4 lactate levels within normal limits. Serum troponins trending down appreciate input from cardiology PHYSICAL EXAMINATION: GENERAL: The patient is alert and oriented x3, not in any acute distress. Well developed, well nourished. HEENT: Pupils are round and equally reacting to light. EOMI. No scleral icterus. No conjunctival pallor. Normocephalic, atraumatic. No pharyngeal erythema. No thyromegaly. CARDIOVASCULAR: S1 and S2 present. No murmurs, rubs, or gallops. PULMONARY: Chest is clear to auscultation, no wheezing or crackles. ABDOMEN: Soft, nontender, nondistended, normoactive bowel sounds. No palpable organomegaly. MUSCULOSKELETAL: No joint swelling or deformity. EXTREMITIES: No cyanosis, clubbing, or pedal edema. NEUROLOGICAL: Gross neurological examination did not reveal any focal deficits. SKIN: No rashes. Objective - Vital Signs Vital signs: Vital Signs Temp 98.3 F 02/27/23 08:25 Pulse 56 L 02/27/23 08:25 Resp 18 02/27/23 08:25 BP 129/80 02/27/23 08:25 Pulse Ox 99 02/27/23 08:25 FiO2 Intake & Output 02/26/23 02/27/23 02/27/23 18:59 06:59 18:59 Intake Total 236 Balance 236 Weight 68.039 kg Intake: Oral 236 Other: Voiding Method Toilet Toilet Toilet # Voids 2 - Labs CBC & Chem 7: 02/27/23 05:01 02/27/23 05:01 Labs: Abnormal Lab Results - Last 24 Hours (Table) 02/27/23 02/27/23 02/27/23 Range/Units 01:49 01:49 01:49 WBC 2.5 L (3.8-10.6) k/uL RBC 1.16 L (3.80-5.40) m/uL Hgb 3.4 L* D (11.4-16.0) gm/dL Hct 11.2 L* (34.0-46.0) % MCHC 29.9 L (31.0-37.0) g/dL Plt Count 127 L D (150-450) k/uL Neutrophils # (1.3-7.7) k/uL Lymphocytes # (1.0-4.8) k/uL Potassium 3.0 L (3.5-5.1) mmol/L Chloride 124 H (98-107) mmol/L Carbon Dioxide 10 L (22-30) mmol/L BUN 22 H (7-17) mg/dL Glucose 70 L (74-99) mg/dL POC Glucose (mg/dL) (70-110) mg/dL Hemoglobin A1c (<=6.0) % Plasma Lactic Acid Anthony 3.4 H* (0.7-2.0) mmol/L Calcium 5.3 L* (8.4-10.2) mg/dL Total Protein 4.0 L (6.3-8.2) g/dL Albumin 1.8 L (3.5-5.0) g/dL Crossmatch 02/27/23 02/27/23 02/27/23 Range/Units 03:21 03:21 03:21 WBC 13.6 H (3.8-10.6) k/uL RBC 3.05 L (3.80-5.40) m/uL Hgb 9.0 L D (11.4-16.0) gm/dL Hct 27.6 L (34.0-46.0) % MCHC (31.0-37.0) g/dL Plt Count (150-450) k/uL Neutrophils # 12.5 H (1.3-7.7) k/uL Lymphocytes # 0.4 L (1.0-4.8) k/uL Potassium (3.5-5.1) mmol/L Chloride 114 H (98-107) mmol/L Carbon Dioxide 14 L (22-30) mmol/L BUN 29 H (7-17) mg/dL Glucose (74-99) mg/dL POC Glucose (mg/dL) (70-110) mg/dL Hemoglobin A1c (<=6.0) % Plasma Lactic Acid Anthony 0.6 L (0.7-2.0) mmol/L Calcium 8.0 L (8.4-10.2) mg/dL Total Protein 5.4 L (6.3-8.2) g/dL Albumin 2.6 L (3.5-5.0) g/dL Crossmatch 02/27/23 02/27/23 02/27/23 Range/Units 03:25 05:01 05:01 WBC 14.0 H (3.8-10.6) k/uL RBC 3.21 L (3.80-5.40) m/uL Hgb 9.5 L (11.4-16.0) gm/dL Hct 28.8 L (34.0-46.0) % MCHC (31.0-37.0) g/dL Plt Count (150-450) k/uL Neutrophils # (1.3-7.7) k/uL Lymphocytes # (1.0-4.8) k/uL Potassium (3.5-5.1) mmol/L Chloride (98-107) mmol/L Carbon Dioxide (22-30) mmol/L BUN (7-17) mg/dL Glucose (74-99) mg/dL POC Glucose (mg/dL) (70-110) mg/dL Hemoglobin A1c 6.4 H (<=6.0) % Plasma Lactic Acid Anthony (0.7-2.0) mmol/L Calcium (8.4-10.2) mg/dL Total Protein (6.3-8.2) g/dL Albumin (3.5-5.0) g/dL Crossmatch See Detail 02/27/23 02/27/23 02/27/23 Range/Units 05:01 05:01 06:10 WBC (3.8-10.6) k/uL RBC (3.80-5.40) m/uL Hgb (11.4-16.0) gm/dL Hct (34.0-46.0) % MCHC (31.0-37.0) g/dL Plt Count (150-450) k/uL Neutrophils # (1.3-7.7) k/uL Lymphocytes # (1.0-4.8) k/uL Potassium (3.5-5.1) mmol/L Chloride 114 H (98-107) mmol/L Carbon Dioxide 14 L (22-30) mmol/L BUN 26 H (7-17) mg/dL Glucose (74-99) mg/dL POC Glucose (mg/dL) 115 H (70-110) mg/dL Hemoglobin A1c (<=6.0) % Plasma Lactic Acid Anthony <0.5 L (0.7-2.0) mmol/L Calcium 8.1 L (8.4-10.2) mg/dL Total Protein (6.3-8.2) g/dL Albumin (3.5-5.0) g/dL Crossmatch 02/27/23 Range/Units 11:34 WBC (3.8-10.6) k/uL RBC (3.80-5.40) m/uL Hgb (11.4-16.0) gm/dL Hct (34.0-46.0) % MCHC (31.0-37.0) g/dL Plt Count (150-450) k/uL Neutrophils # (1.3-7.7) k/uL Lymphocytes # (1.0-4.8) k/uL Potassium (3.5-5.1) mmol/L Chloride (98-107) mmol/L Carbon Dioxide (22-30) mmol/L BUN (7-17) mg/dL Glucose (74-99) mg/dL POC Glucose (mg/dL) 154 H (70-110) mg/dL Hemoglobin A1c (<=6.0) % Plasma Lactic Acid Anthony (0.7-2.0) mmol/L Calcium (8.4-10.2) mg/dL Total Protein (6.3-8.2) g/dL Albumin (3.5-5.0) g/dL Crossmatch Microbiology - Last 24 Hours (Table) 02/25/23 18:38 Urine Culture - Final Urine,Voided Assessment and Plan Assessment: Assessment and plan * Urinary tract infection * Sepsis secondary to UTI * Coronary artery disease with history of CABG with elevated troponin secondary to type II DE * Diabetes mellitus type 2 * Hypertension * In regards to urinary tract infection him a urine cultures ordered, blood cultures ordered continue patient on IV Rocephin, lactate levels normalized with fluid resuscitation * In regards to sepsis, continue patient on IV antibiotic follow up on urine culture and blood culture * In regards to coronary artery disease, cardiology consulted, echocardiogram ordered shows ejection fraction 55% and no wall motion abnormality, continue patient on aspirin, Lipitor, Plavix, cardiology following will need medical records from outside hospital * In regards to diabetes mellitus Accu-Cheks before meals at bedtime continue patient on correctional insulin monitor for hypoglycemia * CODE STATUS is full code
--- NOTE | 2023-02-27 13:06 | P.PN ---
Subjective Progress Note Date: 02/27/23 History of present illness: This is an 82-year-old female with past medical history of coronary artery dis ease status post CABG three-vessel 5 years ago and presented with VT, details are not available, diabetes, hypertension, hyperlipidemia, chronic kidney disease stage III, remote history of tobacco use and dependence. We have been asked to evaluate the patient for elevated troponins. Patient states that she was not feeling good Sunday night into Sunday morning awoke with chills on 2 separate occasions with shakes and rigors. She then developed hot and sweats. Her daughter told her come into the hospital. She now is feeling only tired. She denies having any chest pain or shortness of breath. Patient initially presented to another facility and diagnosed with a urinary tract infection but was found to have an elevated troponin was transferred to [facility] for further evaluation. Troponin was 0.43, creatinine 1.5, EKG sinus rhythm with PVCs. Patient denies having any chest pain, shortness of breath. Patient has been started on ceftriaxone and IV fluids. Patient states she had a stress test done in October of this year at [facility] EKG sinus rhythm with no acute ST changes, occasional PVC WBC 16.7, WBC 10.6, platelet count 372. INR 1.1. Sodium 140, potassium 4.2, BUN 32 creatinine 1.29. Troponin 0.333, 0.205, 0.166. Urinalysis cloudy, positive nitrate, leukoesterase large Home cardiac medications: Aspirin 81 mg daily, atorvastatin 80 mg daily, Plavix 75 mg daily, ferrous sulfate 325 mg daily, Imdur 30 mg daily, losartan 100 mg daily, Toprol-XL 100 mg daily, Lopid 600 mg twice daily. 02/27 Patient is seen today on the cardiac stepdown unit. Last night patient had chills and temperature max 102.5. Nuclear stress test done on 10/31/2022 at [facility] revealed normal perfusion, EF 73%. Echocardiogram reveals EF 55%, moderate concentric left ventricular hypertrophy, moderate aortic insufficiency, small pericardial effusion with pericardial fat. Physical examination: Gen: This is an 82 year old female in bedr, appears to be in no acute distress. VS: reviewed HEENT: Head is atraumatic, normocephalic. Pupils equal, round. Sclerae is anicteric. NECK: Supple. No JVD. LUNGS: Clear to auscultation. No wheezes or rhonchi. No intercostal retraction s. HEART: Regular rate and rhythm. ABDOMEN: Soft No tenderness. EXTREMITIES: No pedal edema. No calf tenderness. NEUROLOGICAL: Patient is awake, alert and oriented x3. 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 Please reconsult for any new concerns. Patient may follow-up in the office in one to 2 weeks. Nurse practitioner note has been reviewed, I agree with documented findings and plan of care. Patient was seen and examined. Objective - Vital Signs Vital signs: Vital Signs Temp 98.3 F 02/27/23 08:25 Pulse 56 L 02/27/23 08:25 Resp 18 02/27/23 08:25 BP 129/80 02/27/23 08:25 Pulse Ox 99 02/27/23 08:25 FiO2 Intake & Output 02/26/23 02/27/23 02/27/23 18:59 06:59 18:59 Intake Total 236 Balance 236 Weight 68.039 kg Intake: Oral 236 Other: Voiding Method Toilet Toilet Toilet # Voids 2 - Labs CBC & Chem 7: 02/27/23 05:01 02/27/23 05:01 Labs: Abnormal Lab Results - Last 24 Hours (Table) 02/27/23 02/27/23 02/27/23 Range/Units 01:49 01:49 01:49 WBC 2.5 L (3.8-10.6) k/uL RBC 1.16 L (3.80-5.40) m/uL Hgb 3.4 L* D (11.4-16.0) gm/dL Hct 11.2 L* (34.0-46.0) % MCHC 29.9 L (31.0-37.0) g/dL Plt Count 127 L D (150-450) k/uL Neutrophils # (1.3-7.7) k/uL Lymphocytes # (1.0-4.8) k/uL Potassium 3.0 L (3.5-5.1) mmol/L Chloride 124 H (98-107) mmol/L Carbon Dioxide 10 L (22-30) mmol/L BUN 22 H (7-17) mg/dL Glucose 70 L (74-99) mg/dL POC Glucose (mg/dL) (70-110) mg/dL Hemoglobin A1c (<=6.0) % Plasma Lactic Acid Anthony 3.4 H* (0.7-2.0) mmol/L Calcium 5.3 L* (8.4-10.2) mg/dL Total Protein 4.0 L (6.3-8.2) g/dL Albumin 1.8 L (3.5-5.0) g/dL Crossmatch 02/27/23 02/27/23 02/27/23 Range/Units 03:21 03:21 03:21 WBC 13.6 H (3.8-10.6) k/uL RBC 3.05 L (3.80-5.40) m/uL Hgb 9.0 L D (11.4-16.0) gm/dL Hct 27.6 L (34.0-46.0) % MCHC (31.0-37.0) g/dL Plt Count (150-450) k/uL Neutrophils # 12.5 H (1.3-7.7) k/uL Lymphocytes # 0.4 L (1.0-4.8) k/uL Potassium (3.5-5.1) mmol/L Chloride 114 H (98-107) mmol/L Carbon Dioxide 14 L (22-30) mmol/L BUN 29 H (7-17) mg/dL Glucose (74-99) mg/dL POC Glucose (mg/dL) (70-110) mg/dL Hemoglobin A1c (<=6.0) % Plasma Lactic Acid Anthony 0.6 L (0.7-2.0) mmol/L Calcium 8.0 L (8.4-10.2) mg/dL Total Protein 5.4 L (6.3-8.2) g/dL Albumin 2.6 L (3.5-5.0) g/dL Crossmatch 02/27/23 02/27/2302/27/23 Range/Units 03:25 05:01 05:01 WBC 14.0 H (3.8-10.6) k/uL RBC 3.21 L (3.80-5.40) m/uL Hgb 9.5 L (11.4-16.0) gm/dL Hct 28.8 L (34.0-46.0) % MCHC (31.0-37.0) g/dL Plt Count (150-450) k/uL Neutrophils # (1.3-7.7) k/uL Lymphocytes # (1.0-4.8) k/uL Potassium (3.5-5.1) mmol/L Chloride (98-107) mmol/L Carbon Dioxide (22-30) mmol/L BUN (7-17) mg/dL Glucose (74-99) mg/dL POC Glucose (mg/dL) (70-110) mg/dL Hemoglobin A1c 6.4 H (<=6.0) % Plasma Lactic Acid Anthony (0.7-2.0) mmol/L Calcium (8.4-10.2) mg/dL Total Protein (6.3-8.2) g/dL Albumin (3.5-5.0) g/dL Crossmatch See Detail 02/27/23 02/27/23 02/27/23 Range/Units 05:01 05:01 06:10 WBC (3.8-10.6) k/uL RBC (3.80-5.40) m/uL Hgb (11.4-16.0) gm/dL Hct (34.0-46.0) % MCHC (31.0-37.0) g/dL Plt Count (150-450) k/uL Neutrophils # (1.3-7.7) k/uL Lymphocytes # (1.0-4.8) k/uL Potassium (3.5-5.1) mmol/L Chloride 114 H (98-107) mmol/L Carbon Dioxide 14 L (22-30) mmol/L BUN 26 H (7-17) mg/dL Glucose (74-99) mg/dL POC Glucose (mg/dL) 115 H (70-110) mg/dL Hemoglobin A1c (<=6.0) % Plasma Lactic Acid Anthony <0.5 L (0.7-2.0) mmol/L Calcium 8.1 L (8.4-10.2) mg/dL Total Protein (6.3-8.2) g/dL Albumin (3.5-5.0) g/dL Crossmatch Microbiology - Last 24 Hours (Table) 02/25/23 18:38 Urine Culture - Final Urine,Voided
[2023-02-27 16:42] LABS: Glucose,Whole Blood 172 mg/dL (70-110)
[2023-02-27 20:11] LABS: Glucose,Whole Blood 134 mg/dL (70-110)
[2023-02-27] MEDS: MELATONIN 5 MG TABLET PO SCH (21:21)
[2023-02-28] MEDS: SODIUM CHLORIDE 0.9% 1,000 ML IV SCH ×2 (02:31→17:41)
[2023-02-28 06:12] LABS: Glucose,Whole Blood 132 mg/dL (70-110)
[2023-02-28] MEDS: INSULIN ASPART (NovoLOG) 100 UNIT/ML VIAL SQ SCH ×4 (06:16→20:01)
[2023-02-28] MEDS: ASPIRIN 81 MG PO SCH (09:32)
[2023-02-28] MEDS: ISOSORBIDE MONONITRATE ER 30 MG TAB.ER.24H PO SCH (09:32)
[2023-02-28] MEDS: LOSARTAN 50 MG TAB PO SCH (09:32)
[2023-02-28] MEDS: CLOPIDOGREL 75 MG TAB PO SCH (09:32)
[2023-02-28] MEDS: ENOXAPARIN 40 MG/0.4 ML SYRINGE SQ SCH (09:32)
[2023-02-28] MEDS: FLUoxetine HCL 10 MG CAP PO SCH (09:32)
[2023-02-28] MEDS: FERROUS SULFATE 325 MG TAB PO SCH (09:32)
[2023-02-28] MEDS: ATORVASTATIN 80 MG TAB PO SCH (09:32)
[2023-02-28] MEDS: FENOFIBRATE 160 MG TAB PO SCH (09:32)
[2023-02-28] MEDS: METOPROLOL SUCCINATE (ER) 100 MG TAB.ER.24H PO SCH (09:32)
[2023-02-28] MEDS ORDERED: BENZOCAINE/MENTHOL LOZENG 1 EACH LOZENGE MUCOUS MEM PRN (11:01)
--- NOTE | 2023-02-28 11:04 | P.PN ---
Subjective Progress Note Date: 02/28/23 * 82-year-old lady with past medical history significant for diabetes mellitus, coronary artery disease, history of CABG was sent in from an outside hospital for weakness fatigue elevated troponin and concern for urinary tract infection and sepsis * Workup initiated in our emergency department include hepatology which were WBC of 16.7 and Lovenox 10.6 hematocrit of 32 platelet count of 372 * Patient had serum chemistry done which sodium of 140 potassium 4.2 carbon dioxide of 13 BU and also to 1.09 * Serial troponins obtained 0.205, 0.166, urinalysis is obtained in ED was consistent with urinary tract infection patient had already received Rocephin * EKG obtained in ER, showed sinus rhythm no significant ST segment changes * Patient was assessed in emergency department, she complained of chills, sybil t states her daughter had told her to come to the hospital in general patient complained of feeling tired * 02/27/23: Patient seen and evaluated bedside, overnight patient had episode of chills, rapid response was called blood work obtained showed hemoglobin of 3.4 which was elevated. Repeat blood work obtained stat showed hemoglobin of 9. Blood work obtained showed normal sodium and renal function HbA1c 6.4 lactate levels within normal limits. Serum troponins trending down appreciate input from cardiology * 02/28/23: Patient seen and evaluated bedside, patient does complain of left HIP pain and cough. We'll follow-up on chest x-ray x-ray left hip and lozenges ordered. Continue current medical regimen PHYSICAL EXAMINATION: GENERAL: The patient is alert and oriented x3, not in any acute distress. Well developed, well nourished. Ill appearance HEENT: Pupils are round and equally reacting to light. EOMI. No scleral icterus. CARDIOVASCULAR: S1 and S2 present. No murmurs, rubs, or gallops. PULMONARY: Chest is clear to auscultation, no wheezing or crackles. ABDOMEN: Soft, nontender, nondistended, normoactive bowel sounds. No palpable organomegaly. MUSCULOSKELETAL: No joint swelling or deformity. EXTREMITIES: No cyanosis, clubbing, or pedal edema. NEUROLOGICAL: Gross neurological examination did not reveal any focal deficits. SKIN: No rashes. Objective - Vital Signs Vital signs: Vital Signs Temp 98.0 F 02/28/23 08:00 Pulse 56 L 02/28/23 08:00 Resp 16 10/25/23 08:00 BP 185/80 02/28/23 08:00 Pulse Ox 97 02/28/23 08:00 FiO2 Intake & Output 02/27/23 02/28/23 02/28/23 18:59 06:59 18:59 Intake Total 358 240 Output Total 600 Balance -242 240 Intake: Oral 358 240 Output: Urine 600 Other: Voiding Method Toilet Toilet Toilet # Voids 2 - Labs CBC & Chem 7: 02/27/23 05:01 02/27/23 05:01 Labs: Abnormal Lab Results - Last 24 Hours (Table) 02/27/23 02/27/23 02/27/23 Range/Units 11:34 16:38 20:10 POC Glucose (mg/dL) 154 H 172 H 134 H (70-110) mg/dL 02/28/23 Range/Units 06:10 POC Glucose (mg/dL) 132 H (70-110) mg/dL Microbiology - Last 24 Hours (Table) 02/26/23 10:07 Blood Culture - Preliminary Blood 02/25/23 18:38 Urine Culture - Final Urine,Voided Assessment and Plan Assessment: Assessment and plan * Urinary tract infection * Sepsis secondary to UTI * Coronary artery disease with history of CABG with elevated troponin secondary to type II UT * Diabetes mellitus type 2 * Osteoarthritis with left hip pain * Hypertension * In regards to urinary tract infection him a urine cultures ordered, blood cultures ordered continue patient on IV Rocephin day 3 , lactate levels normalized with fluid resuscitation * In regards to sepsis, continue patient on IV antibiotic follow up on urine culture and blood culture * In regards to coronary artery disease, cardiology consulted, echocardiogram ordered shows ejection fraction 55% and no wall motion abnormality, continue patient on aspirin, Lipitor, Plavix, cardiology following will need medical records from outside hospital * In regards to diabetes mellitus Accu-Cheks before meals at bedtime continue patient on correctional insulin monitor for hypoglycemia * In regards to osteoarthritis x-ray left hip ordered, lidocaine patch ordered * CODE STATUS is full code
[2023-02-28 11:33] LABS: Glucose,Whole Blood 75 mg/dL (70-110)
--- NOTE | 2023-02-28 13:28 | XR ---
EXAMINATION TYPE: XR Hip Bilateral and AP pelvis DATE OF EXAM: 02/28/2023 COMPARISON: None HISTORY: Fall TECHNIQUE: Bilateral hips are examined in 2 views each. Exam is supplemented with an AP pelvis. FINDINGS: Pubic symphysis and sacroiliac joints are normal. No acute fractures or dislocations are ev ident. Femoral heads articulate with the acetabulum. Joint spaces are preserved. Follow up exams can be performed as clinically indicated IMPRESSION: 1. No acute osseous abnormalities bilateral hips.
--- NOTE | 2023-02-28 13:28 | XR ---
EXAMINATION TYPE: XR chest 2V DATE OF EXAM: 02/28/2023 COMPARISON: None INDICATION: Cough, weakness TECHNIQUE: Frontal and lateral views of the chest are obtained. FINDINGS: The heart size is normal. The pulmonary vasculature is normal. The lungs are clear. Sternotomy wires are present. IMPRESSION: 1. No acute pulmonary process.
[2023-02-28 16:07] LABS: Glucose,Whole Blood 111 mg/dL (70-110)
[2023-02-28] MEDS: LIDOCAINE 5% PATCH TOPICAL SCH (17:41)
[2023-02-28 19:44] LABS: Glucose,Whole Blood 101 mg/dL (70-110)
[2023-02-28] MEDS: ACETAMINOPHEN TAB 325 MG TAB PO PRN (20:12)
[2023-02-28] MEDS: MELATONIN 5 MG TABLET PO SCH (20:13)
[2023-03-01] MEDS: SODIUM CHLORIDE 0.9% 1,000 ML IV SCH ×3 (06:01→23:38)
[2023-03-01 06:19] LABS: Glucose,Whole Blood 94 mg/dL (70-110)
[2023-03-01] MEDS: INSULIN ASPART (NovoLOG) 100 UNIT/ML VIAL SQ SCH ×4 (06:30→20:49)
[2023-03-01 08:36] LABS: HCT 30.2 % (34.0-46.0); HGB 9.3 gm/dL (11.4-16.0); Hypochromasia Moderate; MCH 28.5 pg (25.0-35.0); MCHC 30.9 g/dL (31.0-37.0); MCV 92.5 fL (80.0-100.0); Mean Platelet Volume 8.2; Platelet Count 321 k/uL (150-450); RBC 3.27 m/uL (3.80-5.40); RDW 14.6 % (11.5-15.5); WBC 10.4 k/uL (3.8-10.6)
[2023-03-01] MEDS: LIDOCAINE 5% PATCH TOPICAL SCH (08:47)
[2023-03-01] MEDS: ISOSORBIDE MONONITRATE ER 30 MG TAB.ER.24H PO SCH (08:48)
[2023-03-01] MEDS: FENOFIBRATE 160 MG TAB PO SCH (08:48)
[2023-03-01] MEDS: ATORVASTATIN 80 MG TAB PO SCH (08:48)
[2023-03-01] MEDS: FERROUS SULFATE 325 MG TAB PO SCH (08:48)
[2023-03-01] MEDS: ACETAMINOPHEN TAB 325 MG TAB PO PRN ×3 (08:48→23:53)
[2023-03-01] MEDS: FLUoxetine HCL 10 MG CAP PO SCH (08:48)
[2023-03-01] MEDS: LOSARTAN 50 MG TAB PO SCH (08:48)
[2023-03-01] MEDS: ASPIRIN 81 MG PO SCH (08:48)
[2023-03-01] MEDS: METOPROLOL SUCCINATE (ER) 100 MG TAB.ER.24H PO SCH (08:48)
[2023-03-01] MEDS: ENOXAPARIN 40 MG/0.4 ML SYRINGE SQ SCH (08:48)
[2023-03-01] MEDS: CLOPIDOGREL 75 MG TAB PO SCH (08:48)
[2023-03-01] MEDS: hydrALAZINE HCL 20 MG/ML 1 ML VIAL IVP PRN ×2 (08:51→20:49)
[2023-03-01 09:19] LABS: African American GFR (CKD) 68 (>60 ml/min/1.73 sqM); Anion Gap 10 mmol/L; Blood Urea Nitrogen 19 mg/dL (7-17); C Reactive Protein 4.3 mg/dL (<1.0); Calcium 8.3 mg/dL (8.4-10.2); Carbon Dioxide 16 mmol/L (22-30); Chloride 115 mmol/L (98-107); Glucose 101 mg/dL (74-99); Non-African American GFR(CKD) 59 (>60 ml/min/1.73 sqM); Potassium 4.2 mmol/L (3.5-5.1); Sodium 141 mmol/L (137-145)
[2023-03-01 11:36] LABS: Glucose,Whole Blood 106 mg/dL (70-110)
--- NOTE | 2023-03-01 11:38 | P.PN ---
Subjective Progress Note Date: 03/01/23 * 82-year-old lady with past medical history significant for diabetes mellitus, coronary artery disease, history of CABG was sent in from an outside hospital for weakness fatigue elevated troponin and concern for urinary tract infection and sepsis * Workup initiated in our emergency department include hepatology which were WBC of 16.7 and Lovenox 10.6 hematocrit of 32 platelet count of 372 * Patient had serum chemistry done which sodium of 140 potassium 4.2 carbon dioxide of 13 BU and also to 1.09 * Serial troponins obtained 0.205, 0.166, urinalysis is obtained in ED was consistent with urinary tract infection patient had already received Rocephin * EKG obtained in ER, showed sinus rhythm no significant ST segment changes * Patient was assessed in emergency department, she complained of chills, sybil t states her daughter had told her to come to the hospital in general patient complained of feeling tired * 02/27/23: Patient seen and evaluated bedside, overnight patient had episode of chills, rapid response was called blood work obtained showed hemoglobin of 3.4 which was elevated. Repeat blood work obtained stat showed hemoglobin of 9. Blood work obtained showed normal sodium and renal function HbA1c 6.4 lactate levels within normal limits. Serum troponins trending down appreciate input from cardiology * 02/28/23: Patient seen and evaluated bedside, patient does complain of left HIP pain and cough. We'll follow-up on chest x-ray x-ray left hip and lozenges ordered. Continue current medical regimen * 03/01/23: Patient seen and evaluated bedside, patient had a fall while taking shower on 02/28. X-ray hip negative continues to complain of low back pain CT pelvis CT lumbar spine ordered. Noted to have elevated blood pressure when necessary IV hydralazine given. Will need physical therapy evaluation to determine discharge disposition potential hospital stay for another 48 hours PHYSICAL EXAMINATION: GENERAL: The patient is alert and oriented x3, not in any acute distress. Well developed, well nourished. Ill appearance HEENT: Pupils are round and equally reacting to light. EOMI. No scleral icterus. CARDIOVASCULAR: S1 and S2 present. No murmurs, rubs, or gallops. PULMONARY: Chest is clear to auscultation, no wheezing or crackles. ABDOMEN: Soft, nontender, nondistended, normoactive bowel sounds. No palpable organomegaly. MUSCULOSKELETAL: No joint swelling or deformity. EXTREMITIES: No cyanosis, clubbing, or pedal edema. NEUROLOGICAL: Gross neurological examination did not reveal any focal deficits. SKIN: No rashes. Objective - Vital Signs Vital signs: Vital Signs Temp 98.2 F 03/01/23 04:00 Pulse 53 L 03/01/23 09:41 Resp 18 03/01/23 09:41 BP 159/72 03/01/23 09:41 Pulse Ox 97 03/01/23 08:00 FiO2 Intake & Output 02/28/23 03/01/23 03/01/23 18:59 06:59 18:59 Intake Total 648 240 Balance 648 240 Intake: Intake, IV Titration 50 Amount cefTRIAXone 1 gm In 50 Sodium Chloride 0.9% 50 ml @ 100 mls/hr IVPB Q24HR [facility] Rx#:[id number] Oral 598 240 Other: Voiding Method Toilet Toilet Toilet # Voids 1 1 # Bowel Movements 1 - Labs CBC & Chem 7: 03/01/23 07:54 03/01/23 07:54 Labs: Abnormal Lab Results - Last 24 Hours (Table) 02/27/23 02/27/23 02/28/23 Range/Units 03:21 03:25 16:05 WBC 13.6 H (3.8-10.6) k/uL RBC 3.05 L (3.80-5.40) m/uL Hgb 9.0 L D (11.4-16.0) gm/dL Hct 27.6 L (34.0-46.0) % MCHC (31.0-37.0) g/dL Neutrophils # 12.5 H (1.3-7.7) k/uL Lymphocytes # 0.4 L (1.0-4.8) k/uL Chloride (98-107) mmol/L Carbon Dioxide (22-30) mmol/L BUN (7-17) mg/dL Glucose (74-99) mg/dL POC Glucose (mg/dL) 111 H (70-110) mg/dL Calcium (8.4-10.2) mg/dL C-Reactive Protein (<1.0) mg/dL Crossmatch See Detail 03/01/23 03/01/23 Range/Units 07:54 07:54 WBC (3.8-10.6) k/uL RBC 3.27 L (3.80-5.40) m/uL Hgb 9.3 L (11.4-16.0) gm/dL Hct 30.2 L (34.0-46.0) % MCHC 30.9 L (31.0-37.0) g/dL Neutrophils # (1.3-7.7) k/uL Lymphocytes # (1.0-4.8) k/uL Chloride 115 H (98-107) mmol/L Carbon Dioxide 16 L (22-30) mmol/L BUN 19 H (7-17) mg/dL Glucose 101 H (74-99) mg/dL POC Glucose (mg/dL) (70-110) mg/dL Calcium 8.3 L (8.4-10.2) mg/dL C-Reactive Protein 4.3 H (<1.0) mg/dL Crossmatch Microbiology - Last 24 Hours (Table) 02/26/23 10:07 Blood Culture - Preliminary Blood 02/27/23 02:10 Blood Culture - Preliminary Blood 02/27/23 02:00 Blood Culture - Preliminary Blood Assessment and Plan Assessment: Assessment and plan * Urinary tract infection * Sepsis secondary to UTI * Coronary artery disease with history of CABG with elevated troponin secondary to type II TN * Status post fall back pain * Diabetes mellitus type 2 * Osteoarthritis with left hip pain * Hypertension * In regards to urinary tract infection him a urine cultures ordered, blood cultures ordered continue patient on IV Rocephin day 4 , lactate levels normalized with fluid resuscitation * In regards to sepsis, continue patient on IV antibiotic follow up on urine culture and blood culture * In regards to coronary artery disease, cardiology consulted, echocardiogram ordered shows ejection fraction 55% and no wall motion abnormality, continue patient on aspirin, Lipitor, Plavix, cardiology following will need medical records from outside hospital * In regards to diabetes mellitus Accu-Cheks before meals at bedtime continue patient on correctional insulin monitor for hypoglycemia * In regards to osteoarthritis x-ray left hip negative for fracture, lidocaine patch ordered, CT lumbar spine, CT pelvis ordered * CODE STATUS is full code
--- NOTE | 2023-03-01 16:16 | CT ---
EXAMINATION TYPE: CT lumbar spine wo con CT DLP: 901.3 mGycm, Automated exposure control for dose reduction was used. DATE OF EXAM: 03/01/2023 3:54 PM COMPARISON: CTA thoracoabdominal pelvis aorta 02/27/2023. CLINICAL INDICATION:Female, 82 years old with history of back pain , fall; PHH, Fall, back pain TECHNIQUE: Multiple axial images were obtained from the midportion of T11 through the sacroiliac lesvia nts. Soft tissue and bone windows in coronal and sagittal planes were obtained and reviewed. FINDINGS: Alignment: There are 5 lumbar type vertebral bodies within normal alignment. Bone: No evidence of fracture is identified. Multilevel anterior osteophytosis. Sacralization of the L5 vertebral body. Discs: T12-L1: No spinal canal or neural foraminal stenosis is identified. L1-L2: No spinal canal or neural foraminal stenosis is identified. L2-L3: Broad-based disc bulge with mild effacement of the anterior thecal sac. The neural foramen are patent bilaterally. L3-L4: Broad-based disc bulge with mild effacement of the anterior thecal sac. The neural foramen are mildly narrowed bilaterally. L4-L5: Broad-based disc bulge with minimal effacement of the anterior thecal sac. The neural foramen are patent bilaterally. L5-S1: No spinal canal or neural foraminal stenosis is identified. Other: None IMPRESSION: 1. No evidence for spinal fracture. 2. Mild multilevel degenerative disc disease.
--- NOTE | 2023-03-01 16:20 | CT ---
EXAMINATION TYPE: CT pelvis wo con CT DLP: 322.9 mGycm, Automated exposure control for dose reduction was used. DATE OF EXAM: 03/01/2023 3:53 PM COMPARISON: CT abdomen pelvis most recent from 02/28/2023 CLINICAL INDICATION:Female, 82 years old with history of back pain, fall; Fall, pain TECHNIQUE: Axial CT of the ;CT pelvis wo con;Sagittal and coronal reformats were created on a [employer] workstation. Contrast used: mL of , (none if empty) Oral contrast used: without Oral Contrast (none if empty) FINDINGS: STOMACH AND BOWEL: No evidence of bowel obstruction. Few scattered colonic diverticula. PERITONEUM/RETROPERITONEUM: No evidence of pneumoperitoneum or free fluid. VASCULATURE: No evidence of aortic aneurysm. MUSCULOSKELETAL: No acute osseous abnormalities, multilevel degeneration changes of the spine. Visual ized osseous structures appear intact. There is hemisacralization of the L5 vertebrae. Osteophyte for mation of the acetabulum bilaterally. There is a well-corticated osseous body/calcification near the left greater trochanter. Increased angulation of the sacrum/coccyx which is somewhat limited for eval uation due to motion. Sclerotic bone island in the left femur. LYMPH NODES: No gross evidence for lymphadenopathy. SOFT TISSUE/ABDOMINAL WALL: Unremarkable IMPRESSION: 1. No definitive evidence for acute fracture. If there remains concern for acute fracture consider M RI 2. Limited evaluation of the S5 sacrum/coccyx region due to motion. Correlate with point tenderness for S5 sacral fracture.
[2023-03-01 16:25] LABS: Glucose,Whole Blood 89 mg/dL (70-110)
[2023-03-01 20:37] LABS: Glucose,Whole Blood 87 mg/dL (70-110)
[2023-03-01] MEDS: MELATONIN 5 MG TABLET PO SCH (20:48)
[2023-03-02 05:56] LABS: Glucose,Whole Blood 98 mg/dL (70-110)
[2023-03-02] MEDS: INSULIN ASPART (NovoLOG) 100 UNIT/ML VIAL SQ SCH ×4 (06:07→21:05)
[2023-03-02 07:39] LABS: HCT 30.7 % (34.0-46.0); HGB 10.1 gm/dL (11.4-16.0); Hypochromasia Slight; MCH 29.7 pg (25.0-35.0); MCV 89.8 fL (80.0-100.0); Mean Platelet Volume 7.7; Platelet Count 341 k/uL (150-450); RBC 3.41 m/uL (3.80-5.40); RDW 14.8 % (11.5-15.5); WBC 7.2 k/uL (3.8-10.6)
[2023-03-02 08:34] LABS: African American GFR (CKD) 84 (>60 ml/min/1.73 sqM); Anion Gap 9 mmol/L; Blood Urea Nitrogen 13 mg/dL (7-17); Calcium 8.8 mg/dL (8.4-10.2); Carbon Dioxide 19 mmol/L (22-30); Chloride 112 mmol/L (98-107); Glucose 108 mg/dL (74-99); Non-African American GFR(CKD) 73 (>60 ml/min/1.73 sqM); Sodium 140 mmol/L (137-145)
[2023-03-02] MEDS: LIDOCAINE 5% PATCH TOPICAL SCH (09:57)
[2023-03-02] MEDS: METOPROLOL SUCCINATE (ER) 100 MG TAB.ER.24H PO SCH (09:58)
[2023-03-02] MEDS: ACETAMINOPHEN TAB 325 MG TAB PO PRN ×3 (09:58→23:42)
[2023-03-02] MEDS: LOSARTAN 50 MG TAB PO SCH (09:58)
[2023-03-02] MEDS: ISOSORBIDE MONONITRATE ER 30 MG TAB.ER.24H PO SCH (09:58)
[2023-03-02] MEDS: FERROUS SULFATE 325 MG TAB PO SCH (09:58)
[2023-03-02] MEDS: ENOXAPARIN 40 MG/0.4 ML SYRINGE SQ SCH (09:59)
[2023-03-02] MEDS: ASPIRIN 81 MG PO SCH (09:59)
[2023-03-02] MEDS: SODIUM CHLORIDE 0.9% 1,000 ML IV SCH ×2 (09:59→18:35)
[2023-03-02] MEDS: CLOPIDOGREL 75 MG TAB PO SCH (09:59)
[2023-03-02] MEDS: ATORVASTATIN 80 MG TAB PO SCH (09:59)
[2023-03-02] MEDS: FENOFIBRATE 160 MG TAB PO SCH (09:59)
[2023-03-02] MEDS: FLUoxetine HCL 10 MG CAP PO SCH (09:59)
[2023-03-02 12:00] LABS: Glucose,Whole Blood 102 mg/dL (70-110)
[2023-03-02 12:14] VITALS: BMI 34.0
--- NOTE | 2023-03-02 15:22 | P.PN ---
Subjective Progress Note Date: 03/02/23 82-year-old lady with past medical history significant for diabetes mellitus, coronary artery disease, history of CABG was sent in from an outside hospital for weakness fatigue elevated troponin and concern for urinary tract infection and sepsis * Workup initiated in our emergency department include hepatology which were WBC of 16.7 and Lovenox 10.6 hematocrit of 32 platelet count of 372 * Patient had serum chemistry done which sodium of 140 potassium 4.2 carbon dioxide of 13 BU and also to 1.09 * Serial troponins obtained 0.205, 0.166, urinalysis is obtained in ED was consistent with urinary tract infection patient had already received Rocephin * EKG obtained in ER, showed sinus rhythm no significant ST segment changes * Patient was assessed in emergency department, she complained of chills, patient states her daughter had told her to come to the hospital in general patient complained of feeling tired * 02/27/23: Patient seen and evaluated bedside, overnight patient had episode of chills, rapid response was called blood work obtained showed hemoglobin of 3.4 which was elevated. Repeat blood work obtained stat showed hemoglobin of 9. Blood work obtained showed normal sodium and renal function HbA1c 6.4 lactate levels within normal limits. Serum troponins trending down appreciate input from cardiology * 02/28/23: Patient seen and evaluated bedside, patient does complain of left HIP pain and cough. We'll follow-up on chest x-ray x-ray left hip and lozenges ordered. Continue current medical regimen * 03/01/23: Patient seen and evaluated bedside, patient had a fall while taking shower on 02/28. X-ray hip negative continues to complain of low back pain CT pelvis CT lumbar spine ordered. Noted to have elevated blood pressure when necessary IV hydralazine given. Will need physical therapy evaluation to determine discharge disposition potential hospital stay for another 48 hours 03/02. Patient seen and examined. CT pelvis negative for acute fractures, CT l umbar spine negative for any acute fracture. Labs done this morning showed WBC 7.2, hemoglobin 10.1, sodium 140, potassium 4, BUN 30, creatinine 7.7 REVIEW OF SYSTEMS: CONSTITUTIONAL: No fever, no malaise,. CARDIOVASCULAR: No chest pain, no palpitations, no syncope. PULMONARY: No shortness of breath, no cough, GASTROINTESTINAL: No diarrhea, no nausea, no vomiting, no abdominal pain. NEUROLOGICAL: No headaches, no weakness, PHYSICAL EXAMINATION: GENERAL: The patient is alert and oriented x3, not in any acute distress. Well developed, well nourished. HEENT: Pupils are round and equally reacting to light. EOMI. No scleral icterus. No conjunctival pallor. Normocephalic, atraumatic. No pharyngeal erythema. No thyromegaly. CARDIOVASCULAR: S1 and S2 present. No murmurs, rubs, or gallops. PULMONARY: Chest is clear to auscultation, no wheezing or crackles. ABDOMEN: Soft, nontender, nondistended, normoactive bowel sounds. No palpable organomegaly. MUSCULOSKELETAL: No joint swelling or deformity. EXTREMITIES: No cyanosis, clubbing, or pedal edema. NEUROLOGICAL: Gross neurological examination did not reveal any focal deficits. SKIN: No rashes. Assessment and plan Urinary tract infection * Sepsis secondary to UTI * Coronary artery disease with history of CABG with elevated troponin secondary to type II [place] * Status post fall back pain * Diabetes mellitus type 2 * Osteoarthritis with left hip pain * Hypertension * In regards to urinary tract infection him a urine cultures ordered, blood cultures ordered continue patient on IV Rocephin day 5 * In regards to sepsis, continue patient on IV antibiotic follow up on urine culture and blood culture * In regards to coronary artery disease, cardiology consulted, echocardiogram ordered shows ejection fraction 55% and no wall motion abnormality, continue patient on aspirin, Lipitor, Plavix, cardiology cleared the patient for discharge * In regards to diabetes mellitus Accu-Cheks before meals at bedtime continue patient on correctional insulin monitor for hypoglycemia * In regards to osteoarthritis x-ray left hip negative for fracture, lidocaine patch ordered, CT lumbar spine, CT pelvis ordered Labs and medication were reviewed.. Continue same treatment. Continue with symptomatic treatment. Resume home medication. Monitor labs and vitals. DVT and GI prophylaxis. Further recommendations as per clinical course of the patient Dictation was produced using [employer] dictation software. please excuse any grammatical, word or spelling errors. Objective - Vital Signs Vital signs: Vital Signs Temp 97.7 F 03/02/23 08:00 Pulse 64 03/02/23 09:42 Resp 18 03/02/23 08:00 BP 171/73 03/02/23 08:00 Pulse Ox 98 03/02/23 09:42 FiO2 21 03/02/23 08:38 Intake & Output 03/01/23 03/02/23 03/02/23 18:59 06:59 18:59 Intake Total 968 240 260 Balance 968 240 260 Weight 74 kg Intake: IV 20 Invasive Line 2 10 Invasive Line 3 10 Intake, IV Titration 850 Amount Sodium Chloride 0.9% 1, 800 000 ml @ 100 mls/hr IV . Q10H [facility] Rx#:[id number] cefTRIAXone 1 gm In 50 Sodium Chloride 0.9% 50 ml @ 100 mls/hr IVPB Q24HR [facility] Rx#:[id number] Oral 118 240 240 Other: Voiding Method Toilet Toilet Toilet # Voids 1 2 2 # Bowel Movements 1 - Labs CBC & Chem 7: 03/02/23 07:28 03/02/23 07:28 Labs: Abnormal Lab Results - Last 24 Hours (Table) 03/02/23 03/02/23 Range/Units 07:28 07:28 RBC 3.41 L (3.80-5.40) m/uL Hgb 10.1 L (11.4-16.0) gm/dL Hct 30.7 L (34.0-46.0) % Chloride 112 H (98-107) mmol/L Carbon Dioxide 19 L (22-30) mmol/L Glucose 108 H (74-99) mg/dL Microbiology - Last 24 Hours (Table) 02/26/23 10:07 Blood Culture - Preliminary Blood 02/27/23 02:10 Blood Culture - Preliminary Blood 02/27/23 02:00 Blood Culture - Preliminary Blood
[2023-03-02] MEDS: hydrALAZINE HCL 20 MG/ML 1 ML VIAL IVP PRN ×2 (16:00→23:42)
[2023-03-02 16:08] LABS: Glucose,Whole Blood 94 mg/dL (70-110)
[2023-03-02 20:27] LABS: Glucose,Whole Blood 102 mg/dL (70-110)
[2023-03-02] MEDS: MELATONIN 5 MG TABLET PO SCH (21:10)
[2023-03-03] MEDS: SODIUM CHLORIDE 0.9% 1,000 ML IV SCH ×2 (06:13→18:59)
[2023-03-03 06:21] LABS: Glucose,Whole Blood 111 mg/dL (70-110)
[2023-03-03] MEDS: INSULIN ASPART (NovoLOG) 100 UNIT/ML VIAL SQ SCH ×4 (06:29→20:10)
[2023-03-03] MEDS: ASPIRIN 81 MG PO SCH (09:04)
[2023-03-03] MEDS: LOSARTAN 50 MG TAB PO SCH (09:05)
[2023-03-03] MEDS: ISOSORBIDE MONONITRATE ER 30 MG TAB.ER.24H PO SCH (09:05)
[2023-03-03] MEDS: METOPROLOL SUCCINATE (ER) 100 MG TAB.ER.24H PO SCH (09:05)
[2023-03-03] MEDS: ATORVASTATIN 80 MG TAB PO SCH (09:05)
[2023-03-03] MEDS: ENOXAPARIN 40 MG/0.4 ML SYRINGE SQ SCH (09:05)
[2023-03-03] MEDS: FENOFIBRATE 160 MG TAB PO SCH (09:05)
[2023-03-03] MEDS: ACETAMINOPHEN TAB 325 MG TAB PO PRN ×2 (09:05→20:26)
[2023-03-03] MEDS: FERROUS SULFATE 325 MG TAB PO SCH (09:05)
[2023-03-03] MEDS: CLOPIDOGREL 75 MG TAB PO SCH (09:05)
[2023-03-03] MEDS: LIDOCAINE 5% PATCH TOPICAL SCH ×2 (09:07→12:42)
[2023-03-03] MEDS: FLUoxetine HCL 10 MG CAP PO SCH (09:07)
[2023-03-03 11:35] LABS: Glucose,Whole Blood 92 mg/dL (70-110)
[2023-03-03] MEDS: hydrALAZINE HCL 20 MG/ML 1 ML VIAL IVP PRN (12:47)
--- NOTE | 2023-03-03 13:48 | P.PN ---
Subjective Progress Note Date: 03/03/23 82-year-old lady with past medical history significant for diabetes mellitus, coronary artery disease, history of CABG was sent in from an outside hospital for weakness fatigue elevated troponin and concern for urinary tract infection and sepsis * Workup initiated in our emergency department include hepatology which were WBC of 16.7 and Lovenox 10.6 hematocrit of 32 platelet count of 372 * Patient had serum chemistry done which sodium of 140 potassium 4.2 carbon dioxide of 13 BU and also to 1.09 * Serial troponins obtained 0.205, 0.166, urinalysis is obtained in ED was consistent with urinary tract infection patient had already received Rocephin * EKG obtained in ER, showed sinus rhythm no significant ST segment changes * Patient was assessed in emergency department, she complained of chills, patient states her daughter had told her to come to the hospital in general patient complained of feeling tired * 02/27/23: Patient seen and evaluated bedside, overnight patient had episode of chills, rapid response was called blood work obtained showed hemoglobin of 3.4 which was elevated. Repeat blood work obtained stat showed hemoglobin of 9. Blood work obtained showed normal sodium and renal function HbA1c 6.4 lactate levels within normal limits. Serum troponins trending down appreciate input from cardiology * 02/28/23: Patient seen and evaluated bedside, patient does complain of left HIP pain and cough. We'll follow-up on chest x-ray x-ray left hip and lozenges ordered. Continue current medical regimen * 03/01/23: Patient seen and evaluated bedside, patient had a fall while taking shower on 02/28. X-ray hip negative continues to complain of low back pain CT pelvis CT lumbar spine ordered. Noted to have elevated blood pressure when necessary IV hydralazine given. Will need physical therapy evaluation to determine discharge disposition potential hospital stay for another 48 hours 03/02. Patient seen and examined. CT pelvis negative for acute fractures, CT l umbar spine negative for any acute fracture. Labs done this morning showed WBC 7.2, hemoglobin 10.1, sodium 140, potassium 4, BUN 30, creatinine 7.7 03/03. Patient seen and examined. States pain in under control, denies any lightheadedness or dizziness. Vital signs stable REVIEW OF SYSTEMS: CONSTITUTIONAL: No fever, no malaise,. CARDIOVASCULAR: No chest pain, no palpitations, no syncope. PULMONARY: No shortness of breath, no cough, GASTROINTESTINAL: No diarrhea, no nausea, no vomiting, no abdominal pain. NEUROLOGICAL: No headaches, no weakness, PHYSICAL EXAMINATION: GENERAL: The patient is alert and oriented x3, not in any acute distress. Well developed, well nourished. HEENT: Pupils are round and equally reacting to light. EOMI. No scleral icterus. No conjunctival pallor. Normocephalic, atraumatic. No pharyngeal erythema. No thyromegaly. CARDIOVASCULAR: S1 and S2 present. No murmurs, rubs, or gallops. PULMONARY: Chest is clear to auscultation, no wheezing or crackles. ABDOMEN: Soft, nontender, nondistended, normoactive bowel sounds. No palpable organomegaly. MUSCULOSKELETAL: No joint swelling or deformity. EXTREMITIES: No cyanosis, clubbing, or pedal edema. NEUROLOGICAL: Gross neurological examination did not reveal any focal deficits. SKIN: No rashes. Assessment and plan Urinary tract infection * Sepsis secondary to UTI * Coronary artery disease with history of CABG with elevated troponin secondary to type II [place] * Status post fall back pain * Diabetes mellitus type 2 * Osteoarthritis with left hip pain * Hypertension * In regards to urinary tract infection completely 5 days of IV antibiotics * In regards to sepsis, completed 5 days of antibiotic * In regards to coronary artery disease, cardiology consulted, echocardiogram ordered shows ejection fraction 55% and no wall motion abnormality, continue patient on aspirin, Lipitor, Plavix, cardiology cleared the patient for discharge * In regards to diabetes mellitus Accu-Cheks before meals at bedtime continue patient on correctional insulin monitor for hypoglycemia * In regards to osteoarthritis x-ray left hip negative for fracture, lidocaine patch ordered, results of CT spine noted Labs and medication were reviewed.. Continue same treatment. Continue with symptomatic treatment. Resume home medication. Monitor labs and vitals. DVT and GI prophylaxis. Further recommendations as per clinical course of the patient Dictation was produced using [employer] dictation software. please excuse any grammatical, word or spelling errors. Objective - Vital Signs Vital signs: Vital Signs Temp 97.7 F 03/03/23 12:44 Pulse 56 L 03/03/23 12:44 Resp 18 03/03/23 12:44 BP 183/80 03/03/23 12:44 Pulse Ox 97 03/03/23 12:44 FiO2 21 03/02/23 08:38 Intake & Output 03/02/23 03/03/23 03/03/23 18:59 06:59 18:59 Intake Total 490 200 118 Balance 490 200 118 Weight 74 kg Intake: IV 20 Invasive Line 2 10 Invasive Line 3 10 Intake, IV Titration 50 Amount cefTRIAXone 1 gm In 50 Sodium Chloride 0.9% 50 ml @ 100 mls/hr IVPB Q24HR [facility] Rx#:[id number] Oral 420 200 118 Other: Voiding Method Toilet Toilet # Voids 3 2 1 # Bowel Movements 1 - Labs CBC & Chem 7: 03/02/23 07:28 03/02/23 07:28 Labs: Abnormal Lab Results - Last 24 Hours (Table) 03/03/23 Range/Units 06:16 POC Glucose (mg/dL) 111 H (70-110) mg/dL Microbiology - Last 24 Hours (Table) 02/27/23 02:10 Blood Culture - Preliminary Blood 02/27/23 02:00 Blood Culture - Preliminary Blood
[2023-03-03 16:27] LABS: Glucose,Whole Blood 107 mg/dL (70-110)
[2023-03-03] MEDS: hydrALAZINE HCL 25 MG TAB PO SCH ×2 (16:50→20:26)
[2023-03-03 20:04] LABS: Glucose,Whole Blood 128 mg/dL (70-110)
[2023-03-03] MEDS: MELATONIN 5 MG TABLET PO SCH (20:26)
[2023-03-04] MEDS: hydrALAZINE HCL 20 MG/ML 1 ML VIAL IVP PRN ×2 (00:09→04:19)
[2023-03-04 06:04] LABS: Glucose,Whole Blood 108 mg/dL (70-110)
[2023-03-04] MEDS: INSULIN ASPART (NovoLOG) 100 UNIT/ML VIAL SQ SCH ×2 (06:16→11:54)
[2023-03-04] MEDS: ONDANSETRON 4 MG/2 ML VIAL IVP PRN (06:18)
[2023-03-04 09:03] VITALS: TEMP 98
[2023-03-04] MEDS: ASPIRIN 81 MG PO SCH (09:04)
[2023-03-04] MEDS: FENOFIBRATE 160 MG TAB PO SCH (09:04)
[2023-03-04] MEDS: CLOPIDOGREL 75 MG TAB PO SCH (09:04)
[2023-03-04] MEDS: FERROUS SULFATE 325 MG TAB PO SCH (09:04)
[2023-03-04] MEDS: hydrALAZINE HCL 25 MG TAB PO SCH (09:04)
[2023-03-04] MEDS: LOSARTAN 50 MG TAB PO SCH (09:04)
[2023-03-04] MEDS: ATORVASTATIN 80 MG TAB PO SCH (09:04)
[2023-03-04] MEDS: METOPROLOL SUCCINATE (ER) 100 MG TAB.ER.24H PO SCH (09:04)
[2023-03-04] MEDS: FLUoxetine HCL 10 MG CAP PO SCH (09:04)
[2023-03-04] MEDS: ISOSORBIDE MONONITRATE ER 30 MG TAB.ER.24H PO SCH (09:04)
[2023-03-04] MEDS: LIDOCAINE 5% PATCH TOPICAL SCH (09:05)
[2023-03-04] MEDS: ENOXAPARIN 40 MG/0.4 ML SYRINGE SQ SCH (09:05)
[2023-03-04 11:46] LABS: Glucose,Whole Blood 95 mg/dL (70-110)
[2023-03-04 12:51] VITALS: BP 151/76; PULSE 60; RESP 18
--- NOTE | 2023-03-04 14:04 | P.DS ---
Providers Date of admission: 02/25/23 18:37 Expected date of discharge: 03/04/23 Attending physician: Jaelyn Tobin Consults: 02/25/23 18:37 Consult Physician Routine Consulting Provider: Jo Ann Sepulveda Consult Reason/Comments: Trop elevated Do you want consulting provider notified?: Yes Primary care physician: Physician Nonstaff Hospital Course: Discharge diagnoses; Urinary tract infection * Sepsis secondary to UTI * Coronary artery disease with history of CABG with elevated troponin secondary to type II [place] * Status post fall back pain * Diabetes mellitus type 2 * Osteoarthritis with left hip pain * Hypertension * In regards to urinary tract infection completed 5 days of IV antibiotics * In regards to sepsis, completed 5 days of antibiotic * In regards to coronary artery disease, cardiology consulted, echocardiogram ordered shows ejection fraction 55% and no wall motion abnormality, continue patient on aspirin, Lipitor, Plavix, cardiology cleared the patient for discharge * In regards to diabetes mellitus resumed home meds * In regards to osteoarthritis x-ray left hip negative for fracture, lidocaine patch ordered, results of CT spine noted Hospital course; 82-year-old lady with past medical history significant for diabetes mellitus, coronary artery disease, history of CABG was sent in from an outside hospital for weakness fatigue elevated troponin and concern for urinary tract infection and sepsis * Workup initiated in our emergency department include hepatology which were WBC of 16.7 and Lovenox 10.6 hematocrit of 32 platelet count of 372 * Patient had serum chemistry done which sodium of 140 potassium 4.2 carbon dioxide of 13 BU and also to 1.09 * Serial troponins obtained 0.205, 0.166, urinalysis is obtained in ED was consistent with urinary tract infection patient had already received Rocephin * EKG obtained in ER, showed sinus rhythm no significant ST segment changes * Patient was assessed in emergency department, she complained of chills, patient states her daughter had told her to come to the hospital in general patient complained of feeling tired * 02/27/23: Patient seen and evaluated bedside, overnight patient had episode of chills, rapid response was called blood work obtained showed hemoglobin of 3.4 which was elevated. Repeat blood work obtained stat showed hemoglobin of 9. Blood work obtained showed normal sodium and renal function HbA1c 6.4 lactate levels within normal limits. Serum troponins trending down appreciate input from cardiology * 02/28/23: Patient seen and evaluated bedside, patient does complain of left HIP pain and cough. We'll follow-up on chest x-ray x-ray left hip and lozenges ordered. Continue current medical regimen * 03/01/23: Patient seen and evaluated bedside, patient had a fall while taking shower on 02/28. X-ray hip negative continues to complain of low back pain CT pelvis CT lumbar spine ordered. Noted to have elevated blood pressure when necessary IV hydralazine given. Will need physical therapy evaluation to determine discharge disposition potential hospital stay for another 48 hours 03/02. Patient seen and examined. CT pelvis negative for acute fractures, CT lumbar spine negative for any acute fracture. Labs done this morning showed WBC 7.2, hemoglobin 10.1, sodium 140, potassium 4, BUN 30, creatinine 7.7 03/03. Patient seen and examined. States pain in under control, denies any lightheadedness or dizziness. Vital signs stable 03/04. Being discharged in stable condition. PHYSICAL EXAMINATION: GENERAL: The patient is alert and oriented x3, not in any acute distress. Well developed, well nourished. HEENT: Pupils are round and equally reacting to light. EOMI. No scleral icterus. No conjunctival pallor. Normocephalic, atraumatic. No pharyngeal erythema. No thyromegaly. CARDIOVASCULAR: S1 and S2 present. No murmurs, rubs, or gallops. PULMONARY: Chest is clear to auscultation, no wheezing or crackles. ABDOMEN: Soft, nontender, nondistended, normoactive bowel sounds. No palpable organomegaly. MUSCULOSKELETAL: No joint swelling or deformity. EXTREMITIES: No cyanosis, clubbing, or pedal edema. NEUROLOGICAL: Gross neurological examination did not reveal any focal deficits. SKIN: No rashes. Dictation was produced using [employer] dictation software. please excuse any grammatical, word or spelling errors. Patient Condition at Discharge: Stable Plan - Discharge Summary Discharge Rx Participant: No New Discharge Prescriptions: New hydrALAZINE HCL [Apresoline] 25 mg PO TID 30 Days #90 tab Lidocaine 5% Patch [Lidoderm 5% Patch] 1 patch TOPICAL DAILY 7 Days #7 patch Continue Naproxen Sodium [Aleve] 220 mg PO BID Isosorbide Mononitrate ER [Imdur] 30 mg PO DAILY metFORMIN HCL [Glucophage] 500 mg PO DAILY Losartan Potassium 100 mg PO DAILY Ferrous Sulfate [Iron (65 MG Elemental)] 325 mg PO DAILY FLUoxetine HCL [PROzac] 10 mg PO DAILY Atorvastatin [Lipitor] 80 mg PO DAILY Cyanocobalamin (Vitamin B-12) [Vitamin B-12] 1,000 mcg PO DAILY Ascorbic Acid [Vitamin C] 1,000 mg PO DAILY Multivit-Min/FA/Lycopen/Lutein [Centrum Silver Tablet] 1 tab PO DAILY Metoprolol Succinate (ER) [Toprol XL] 100 mg PO DAILY gemfibroziL [Lopid] 600 mg PO BID Aspirin EC [Ecotrin Low Dose] 81 mg PO DAILY Clopidogrel [Plavix] 75 mg PO DAILY Discharge Medication List Ascorbic Acid [Vitamin C] 1,000 mg PO DAILY 02/25/23 [History] Aspirin EC [Ecotrin Low Dose] 81 mg PO DAILY 02/25/23 [History] Atorvastatin [Lipitor] 80 mg PO DAILY 02/25/23 [History] Clopidogrel [Plavix] 75 mg PO DAILY 02/25/23 [History] Cyanocobalamin (Vitamin B-12) [Vitamin B-12] 1,000 mcg PO DAILY 02/25/23 [History] FLUoxetine HCL [PROzac] 10 mg PO DAILY 02/25/23 [History] Ferrous Sulfate [Iron (65 MG Elemental)] 325 mg PO DAILY 02/25/23 [History] Isosorbide Mononitrate ER [Imdur] 30 mg PO DAILY 02/25/23 [History] Losartan Potassium 100 mg PO DAILY 02/25/23 [History] Metoprolol Succinate (ER) [Toprol XL] 100 mg PO DAILY 02/25/23 [History] Multivit-Min/FA/Lycopen/Lutein [Centrum Silver Tablet] 1 tab PO DAILY 02/25/23 [History] Naproxen Sodium [Aleve] 220 mg PO BID 02/25/23 [History] gemfibroziL [Lopid] 600 mg PO BID 02/25/23 [History] metFORMIN HCL [Glucophage] 500 mg PO DAILY 02/25/23 [History] Lidocaine 5% Patch [Lidoderm 5% Patch] 1 patch TOPICAL DAILY 7 Days #7 patch 03/04/23 [Rx] hydrALAZINE HCL [Apresoline] 25 mg PO TID 30 Days #90 tab 03/04/23 [Rx] Follow up Appointment(s)/Referral(s): Nonstaff,Physician [Primary Care Provider] - 1-2 days Paul Johnson DO [STAFF PHYSICIAN] - 1 Week Discharge Disposition: HOME SELF-CARE
== END 2023-03-04 13:26 | disposition home or self-care (01) | DRG 871 ==
LOC: EC 18:18 → 3SCARD 18:37
PROVIDERS: ADMIT Hospitalist; ATTEND Hospitalist
DX: A41.9 Sepsis, unspecified organism (principal); I21.A1 Myocardial infarction type 2; I31.39 Other pericardial effusion (noninflammatory); N39.0 Urinary tract infection, site not specified; D63.1 Anemia in chronic kidney disease; E11.22 Type 2 diabetes mellitus with diabetic chronic kidney disease; E78.5 Hyperlipidemia, unspecified; F32.A Depression, unspecified; F41.9 Anxiety disorder, unspecified; I12.9 Hypertensive chronic kidney disease with stage 1 through stage 4 chronic kidney disease, or unspecified chronic kidney disease; I25.10 Atherosclerotic heart disease of native coronary artery without angina pectoris; M54.9 Dorsalgia, unspecified; I35.1 Nonrheumatic aortic (valve) insufficiency; I49.3 Ventricular premature depolarization; M16.0 Bilateral primary osteoarthritis of hip; N18.30 Chronic kidney disease, stage 3 unspecified; Z79.02 Long term (current) use of antithrombotics/antiplatelets; Z79.82 Long term (current) use of aspirin; Z79.84 Long term (current) use of oral hypoglycemic drugs; Z79.899 Other long term (current) drug therapy; Z95.1 Presence of aortocoronary bypass graft; Z96.1 Presence of intraocular lens; Z71.3 Dietary counseling and surveillance; Z28.310 Unvaccinated for COVID-19; Z28.21 Immunization not carried out because of patient refusal; Z79.1 Long term (current) use of non-steroidal anti-inflammatories (NSAID); Z91.81 History of falling
CPT/HCPCS: 36415; 71046; 71275; 72131; 72192; 73521; 74174; 80048; 80053; 81001; 83036; 83605; 83735; 84484; 85025; 85027; 85610; 85730; 86140; 86850; 86900; 86901; 86920; 87040; 87086; 93005; 93306; 94760; 96361; 96365; 99285